=== PATIENT | female | born 2005 | race Caucasian/White ===

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

== ENCOUNTER 2023-12-28 16:28 | Outpatient (REF) | payer MEDICAID, SELFPAY ==
--- OUTSIDE RECORDS SUMMARY | 2023-12-28 16:30 | XMS_ITS | Encounter Summary ---
Author Organization [facility] Address [address] [place] [address] Care Team Providers Care Ivory Carver Name Role Phone Jaydon Priscilla John KIM Primary Care Provider [phone] Reason for Visit * Reason Onset Date Comments Follow-up 12/12/2017 Encounter Details Date Type Department Care Team (Late st Contact Info) Description 12/12/2017 Telephone [facility] Pediatric Cardiology - [address] [address] Carlos Quintana MD [address] [place] [address] Follow-up Social History Tobacco Use Types Packs/Day Years Used Date Smoking Tobacco: Never Smokeless Tobacco: Never Comments No Sex and Gender Information Value Date Recorded Sex Assigned at Not on file Legal Sex Female 10:55 EDT Gender Identity Not on file Sexual Orientation Not on file documented as of this encounter Miscellaneous Notes * Telephone Encounter - Carlos Quintana MD - 12/12/2017 5688 EST Spoke with Chitra's father regarding her Holter monitor/workout. During the workout: she pushed herself to the maximum, and she did not vomit. Her father was present the entire time. She did have some asthma-like symptoms twice (she could not get enough air) at peak exertion, that would improve with a short rest. Chitra was tired for several hours following the workout, but had no specific/concerning cardiovascular symptoms. Her father is aware I will be meeting with Dr. Hollis to discuss the case, and will follow up againby telephone. Carlos Quintana MD 12/12/2017 16:44 Division of Pediatric Cardiology, [facility] documented in this encounter Plan of Treatment Not on file documented as of this encounter Visit Diagnoses Not on filedocumented in this encounter Care Teams Ivory Carver Relationship Specialty Start Date End Date Priscilla Interiano NP [address] [place] [address] PCP - General 12/06/17 documented as of this encounter
--- OUTSIDE RECORDS SUMMARY | 2023-12-28 16:30 | XMS_ITS | Encounter Summary ---
Author Organization [facility] Address [address] [place] [address] Care Team Providers Care Audio Visual Technician Name Role Phone Jaydon Priscilla John KIM Primary Care Provider [phone] Encounter Details Date Type Department Care Team (Late st Contact Info) Description 12/06/2017 Phlebotomy Only [address] [address] Rodent Exterminator, Outpatient Gastroparesis (Primary Dx) Social History Tobacco Use Types Packs/Day Years Used Date Smoking Tobacco: Never Smokeless Tobacco: Never Comments No Sex and Gender Information Value Date Recorded Sex Assigned at Not on file Legal Sex Female 10:55 EDT Gender Identity Not on file Sexual Orientation Not on file documented as of this encounter Plan of Treatment Not on file documented as of this encounter Procedures Procedure Name Priority Date/Time Associated Diagnosis Comments TISSUE TRANSGLUTAMINASE ANTIBODY, IGA Routine 12/06/2017 12:32 EDT Gastroparesis IGA Routine 12/06/2017 12:32 EDT Gastroparesis SED RATE Routine 12/06/2017 12:32 EDT Gastroparesis COMPLETE BLOOD COUNT AND DIFFERENTIAL Routine 12/06/2017 12:32 EDT Gastroparesis C REACTIVE PROTEIN Routine 12/06/2017 12 :32 EDT Gastroparesis TSH Routine 12/06/2017 12:32 EDT Gastroparesis T4 FREE Routine 12/06/2017 12:32 EDT Gastroparesis LIPASE Routine 12/06/2017 12:32 EDT Gastroparesis AMYLASE Routine 12/06/2017 12:32 EDT Gastroparesis COMPREHENSIVE METABOLIC PANEL (CMP) Routine 12/06/2017 12:32 EDT Gastroparesis documented in this encounter Results * C REACTIVE PROTEIN (12/06/2017 12:32 EDT) Pathologist [facility] C Reactive Protein <7.0 <10.0 mg/L 12/06/2017 14:18 EDT [facility] Blood specimen (specimen) BLOOD SPECIMEN / Unknown 12/06/2017 12:32 EDT 12/06/2017 13:48 EDT us Tristin Arboleda MD CHEMISTRY & BLOOD GAS ORDERABLES Final Result [facility] [address] [place] [address] * SED. RATE:WESTERGREN (12/06/2017 12:32 EDT) Pathologist [facility] Sed. Rate Westergren 2 0 - 20 mm/hr 12/06/2017 14:03 EDT [facility] Blood specimen (specimen) BLOOD SPECIMEN / Unknown 12/06/2017 12:32 EDT 12/06/2017 13:48 EDT us Tristin Arboleda MD HEMATOLOGY & PF4 ORDE RABLES Final Result [facility] [address] [place] [address] * TSH (12/06/2017 12:32 EDT) Pathologist [facility] TSH 2.88 0.50 - 4.50 uIU/ml 12/06/2017 14:47 EDT [facility] Comment: The results of this assay can be falsely lowered due to the consumption of Biotin. Blood specimen (specimen) BLOOD SPECIMEN / Unknown 12/06/2017 12:32 EDT 12/06/2017 13:48 EDT Tristin Arboleda MD CHEMISTRY & BLOOD GAS ORDERABLES Final Result Performing Organization Address [facility] Co de Phone Number [facility] [address] [place] [address] * T4 FREE (12/06/2017 12:32 EDT) T4, Free 0.9 0.8 - 2.0 ng/dl 12/06/2017 14:32 EDT [facility] Blood specimen (specimen) BLOOD SPECIMEN / Unknown 12/06/2017 12:32 EDT 12/06/2017 13:48 EDT Tristin Arboleda MD CHEMISTRY & BLOOD GAS ORDERABLES Final Result Performing Organization Address [facility] Co de Phone Number [facility] [address] [place] [address] * LIPASE (12/06/2017 12:32 EDT) Lipase 37 <181 U/L 12/06/2017 14:18 EDT [facility] Blood specimen (specimen) BLOOD SPECIMEN / Unknown 12/06/2017 12:32 EDT 12/06/2017 13:48 EDT Tristin Arboleda MD CHEMISTRY & BLOOD GAS ORDERABLES Final Result Performing Organization Address [facility] Co de Phone Number [facility] [address] [place] [address] * AMYLASE (12/06/2017 12:32 EDT) Amylase 60 U/L 12/06/2017 14:18 EDT [facility] Blood specimen (specimen) BLOOD SPECIMEN / Unknown 12/06/2017 12:32 EDT 12/06/2017 13:48 EDT Tristin Arboleda MD CHEMISTRY & BLOOD GAS ORDERABLES Final Result Performing Organization Address [facility] Co de Phone Number [facility] [address] [place] [address] * TISSUE TRANSGLUTAMINASE AB (12/06/2017 12:32 EDT) Tissue Transglut Ab <1.2 <4.0 U/mL 12/07/2017 12:48 EDT [facility] Comment: The use of this assay and normal range (result interpretation) has not been established for pediatric samples. Results were obtained with the Blume DistillationA Lite R h-tTG IgA SERG. A negative result may be due to IgA deficiency and does not rule out celiac disease. Blood specimen (specimen) BLOOD SPECIMEN / Unknown 12/06/2017 12:32 EDT 12/06/2017 13:48 EDT Tristin Arboleda MD IMMUNOLOGY AND SEROLO GY ORDERABLES Final Result Performing Organization Address [facility] Co de Phone Number [facility] [address] [place] [address] * IGA (12/06/2017 12:32 EDT) Pathologist [facility] IgA 139 47 - 249 mg/dL 12/07/2017 14:39 EDT [facility] Blood specimen (specimen) BLOOD SPECIMEN / Unknown 12/06/2017 12:32 EDT 12/06/2017 13:48 EDT Tristin Arboleda MD CHEMISTRY & BLOOD GAS ORDERABLES Final Result Performing Organization Address City/[facility] Co de Phone Number [facility] [address] [place] [address] * COMPLETE BLOOD COUNT AND DIFFERENTIAL (12/06/2017 12:32 EDT) WBC 5.01 4.5 - 13.0 K/cmm 12/06/2017 14:02 EDT [facility] RBC 4.47 4.10 - 5.10 M/cmm 12/06/2017 14:02 [facility] Hemoglobin 13.0 12.0 - 16.0 gm/dl 12/06/2017 14:02 [facility] HCT 38.1 36.0 - 46.0 % 12/06/2017 14:02 [facility] MCV 85 78 - 102 fl 12/06/2017 14:02 [facility] MCH 29.1 pg 12/06/2017 14:02 [facility] MCHC 34.1 gm/dl 12/06/2017 14:02 [facility] RDW-CV 13.2 % 12/06/2017 14:02 [facility] RDW-SD 40.8 fl 12/06/2017 14:02 [facility] PLT 274 156 - 312 K/cmm 12/06/2017 14:02 [facility] MPV 10.4 fl 12/06/2017 14:02 [facility] % Neutrophils 60.9 % 12/06/2017 14:02 [facility] % Lymphocytes 27.9 % 12/06/2017 14:02 [facility] % Monocytes 8.2 % 12/06/2017 14:02 [facility] % Eosinophils 2.0 % 12/06/2017 14:02 [facility] % Basophils 0.8 % 12/06/2017 14:02 [facility] % Immature Grans 0.2 % 12/06/2017 14:02 [facility] ABS Neutrophils 3.05 K/cmm 8 14:02 [facility] ABS Lymphs 1.40 K/cmm 12/06/2017 14:02 [facility] ABS Monocytes 0.41 K/cmm 12/06/2017 14:02 [facility] ABS Eosinophils 0.10 K/cmm 8 14:02 [facility] ABS Basophils 0.04 K/cmm 12/06/2017 14:02 [facility] ABS Immature Grans 0.01 K/cmm 12/06/2017 14:02 [facility] Type of Diff: Automated 12/06/2017 14:02 [facility] Blood specimen (specimen) BLOOD SPECIMEN / Unknown 12/06/2017 12:32 EDT 12/06/2017 13:48 EDT Tristin Arboleda MD PACKAGES & DNA PROBE ORDERABLES Final Result [facility] [address] [place] [address] * COMPREHENSIVE METABOLIC PANEL (CMP) (12/06/2017 12:32 EDT) Potassium 4.5 3.3 - 4.6 mEq/L 12/06/2017 14:13 [facility] Sodium 140 136 - 145 mEq/L 12/06/2017 14:13 [facility] Chloride 104 96 - 110 mEq/L 12/06/2017 14:13 [facility] CO2 27 22 - 32 mEq/L 12/06/2017 14:13 [facility] Total Alkaline Phosphatase 73 62 - 209 U/L 12/06/2017 14:13 [facility] Bilirubin, Total 0.7 <1.0 mg/dl 12/07/19 18 14:13 [facility] AST 19 10 - 30 U/L 12/06/2017 14:13 [facility] ALT 19 <31 U/L 12/06/2017 14:13 [facility] Albumin 4.7 3.7 - 5.6 g/dl 12/06/2017 14:13 [facility] Total Protein 7.3 6.3 - 8.6 g/dl 12/06/2017 14:13 [facility] Creatinine 0.66 0.46 - 0.81 mg/dl 12/06/2017 14:13 [facility] GFR, Calculated Age <18 ml/min/1.7 3m2 12/06/2017 14:13 [facility] BUN 11 8 - 21 mg/dl 12/06/2017 14:13 EDT [facility] Calcium 9.9 9.2 - 10.7 mg/dl 12/06/2017 14:13 T [facility] Calculated Calcium 9.3 9.2 - 10.7 mg/dl 12/06/2017 14:13 EDT [facility] Glucose, Serum 99 70 - 100 mg/dl 12/06/2017 14:13 EDT [facility] Fasting? No 12/06/2017 12:33 EDT [facility] Blood specimen (specimen) BLOOD SPECIMEN / Unknown 12/06/2017 12:32 EDT 12/06/2017 13:48 EDT Tristin Arboleda MD CHEMISTRY & BLOOD GAS ORDERABLES Final Result [facility] [address] [place] [address] documented in this encounter Visit Diagnoses Diagnosis Gastroparesis- Primary documented in this encounter Care Teams Audio Visual Technician Relationship Specialty Start Date End Date Priscilla Interiano NP [address] [place] [address] PCP - General 12/06/17 documented as of this encounter
--- OUTSIDE RECORDS SUMMARY | 2023-12-28 16:30 | XMS_ITS | Encounter Summary ---
Author Organization [facility] Address [address] [place] [address] Care Team Providers Care Installer Technician Name Role Phone JaydonPriscilla John KIM Primary Care Provider [phone] Reason for Visit * Reason Onset Date Comments Appointment Related 10/22/2018 Encounter Details Date Type Department Care Team (Late st Contact Info) Description 10/22/2018 Telephone [facility] - Main [place] [address] [place] [address] Tristin Arboleda MD [address] [place] [address] Appointment Related Social History Tobacco Use Types Packs/Day Years Used Date Smoking Tobacco: Never Smokeless Tobacco: Never Comments No Sex and Gender Information Value Date Recorded Sex Assigned at Not on file Legal Sex Female 10:55 EDT Gender Identity Not on file Sexual Orientation Not on file documented as of this encounter Miscellaneous Notes * Telephone Encounter - Jessica Barr - 10/22/2018 0837 EDT Family did not respond to calls, so appt was not scheduled. Records sent to be scanned. * Telephone Encounter - Bette Ford - 10/22/2018 0804 EDT Delmy from the [facility] called to say the referral that was sent on 10/11 is no longer needed for this patient. Please close it. Thanks! documented in this encounter Plan of Treatment Not on file documented as of this encounter Visit Diagnoses Not on filedocumented in this encounter Care Teams Installer Technician Relationship Specialty Start Date End Date Priscilla Interiano, YARDAGE TUFTING MACHINE OPERATOR [address] [place] [address] PCP - General 12/06/17 documented as of this encounter
--- OUTSIDE RECORDS SUMMARY | 2023-12-28 16:30 | XMS_ITS | Encounter Summary ---
Author Organization [facility] Address [address] [place] [address] Care Team Providers Care Lobbyist Name Role Phone Priscilla Interiano NP Primary Care Provider [phone] Reason for Visit * Reason Comments Cardiac Testing Encounter Details Date Type Department Care Team (Latest Contact Info) Description 12/06/2017 14:00 EDT Procedure visit [facility] Cardiology - Main [address] [id number] Holter, McHv Pre-syncope (Primary Dx) Social History Tobacco Use Types [...] Procedure Name Priority Date/Time Associated Diagnosis Comments HOLTER MONITOR Routine 12/06/2017 14:05 EDT Pre-syncope documented in this encounter Results * HOLTER MONITOR (12/06/2017 14:05 EDT) 12/06/2017 14:0 5 EDT Narrative [facility] EKG - 12/13/2017 17:33 EST ? [facility] ? Test Date: ?2017-12-06 Pat Name: ? CHITRA ROLAND ? Department: ? Room: ? Gender: ? Female ? Senior Technical Project Manager: ?? [id number] : ?2005 ? Requested By: JENA Shafer Order Number: [id number] ? Violeta ANG: ?? KIRAN BELLA MD ? Interpretive Statements Monitoring for 48 hours revealed predominant sinus rhythm with minimum, average, and maximum rates of 47/, 86, 207 beats per minute, respectively. ?? 1. No significant ventricular ectopy present. 2. No significant supraventricular ectopy present. 3. Sinus tachycardia was present at the maximal heart rate. 4. Normal sinus node response to documented cardiovascular workout (between 3:40pm-4:40pm on Dec 07). No arrhythmias during exertion. 4. Infrequent intermittent Wenckebach present over night, without significant pauses. Symptoms: No cardiovascular diary symptoms reported. IMPRESSION: ??Cardiac monitoring within normal limits for age, with normal heart rate response to cardiovascular activity. I reviewed the tracing and have either agreed or edited the findings in this report. Electronically Signed On 12-13-2017 17:33:51 EST by KIRAN BELLA MD. Procedure Note Kiran Bella MD - 12/13/2017 [facility] Test Date: 2017-12-06 Pat Name: CHITRA ROLAND Department: Room: Gender: Female Senior Technical Project Manager: [id number] : 2005 Requested By: JENA Shafer Order Number: [id number] Reading MD: KIRAN BELLA MD Interpretive Statements Monitoring for 48 hours revealed predominant sinus rhythm with minimum, average, and maximum rates of 47/, 86, 207 beats per minute, respectively. 1. No significant ventricular ectopy present. 2. No significant supraventricular ectopy present. 3. Sinus tachycardia was present at the maximal heart rate. 4. Normal sinus node response to documented cardiovascular workout(between 3:40pm-4:40pm on Nov 2). No arrhythmias during exertion. 4. Infrequent intermittent Wenckebach present over night, withoutsignificant pauses. Symptoms: No cardiovascular diary symptoms reported. IMPRESSION: Cardiac monitoring within normal limits for age, withnormal heart rate response to cardiovascular activity. I reviewed the tracing and have either agreed or edited the findings inthis report. Electronically Signed On 12-13-2017 17:33:51 EST by KIRAN ENRIQUE. us Kiran Bella MD CARDIAC ECG ORDERABLES Final Result [facility] EKG documented in this encounter Visit Diagnoses Diagnosis Pre-syncope- Primary Syncope and collapse documented in this encounter Care Teams Lobbyist Relationship Specialty Start Date End Date Priscilla Interiano NP [address] [place] [address] PCP - General 12/06/17 documented as of this encounter
--- OUTSIDE RECORDS SUMMARY | 2023-12-28 16:30 | XMS_ITS | Encounter Summary ---
Author Organization [facility] Address [address] [place] [address] Care Team Providers Care Flexible Nanny Name Role Phone Priscilla Interiano SPINNER FRAME Primary Care Provider [phone] Encounter Details Date Type Department Care Team (Late st Contact Info) Description 12/18/2017 7:51 EST - 12/18/2017 23:59 EST Hospital Encounter [facility] [address] [place] [address] Tristin Arboleda MD [address] [place] [id number] Discharge Disposition: Auto Discharge Social History Tobacco Use Types Packs/Day Years Used Date Smoking Tobacco: Never Smokeless Tobacco: Never Comments No Sex and Gender Information Value Date Recorded Sex Assigned at Not on file Legal Sex Female 10:55 EDT Gender Identity Not on file Sexual Orientation Not on file documented as of this encounter Discharge Diagnoses Diagnosis 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 ferrous sulfate (IRON ORAL) Take by mouth daily. documented as of this encounter Discharge Disposition Disposition Code Departure Means Destination Auto Discharge Home documented in this encounter Plan of Treatment Not on file documented as of this encounter Visit Diagnoses Not on filedocumented in this encounter Care Teams Flexible Nanny Relationship Specialty Start Date End Date Priscilla Interiano NP [address] [place] [phone] PCP - General 12/06/17 documented as of this encounter
--- OUTSIDE RECORDS SUMMARY | 2023-12-28 16:30 | XMS_ITS | Encounter Summary ---
Author Organization [facility] Address [address] [place] [address] Care Team Providers Care Supervisor Ticket Sales Name Role Phone Priscilla Interiano APPRAISAL MANAGER Primary Care Provider [phone] Reason for Visit * Reason Onset Date Comments Advice Only 12/13/2017 Encounter Details Date Type Department Care Team (Late st Contact Info) Description 12/13/2017 Telephone [facility] Pediatric Cardiology - [facility] [address] [place], [place] [id number] Carlos Quintana MD [address] [place] [address] Advice Only Social History Tobacco Use Types Packs/Day Years Used Date Smoking Tobacco: Never Smokeless Tobacco: Never Comments No Sex and Gender Information Value Date Recorded Sex Assigned at Not on file Legal Sex Female 10:55 EDT Gender Identity Not on file Sexual Orientation Not on file documented as of this encounter Miscellaneous Notes * Telephone Encounter - Emely Houser - 12/13/2017 1418 EST Please call dad (Mariano) Note: He's not available though between 3 and 4:00 documented in this encounter Plan of Treatment Not on file documented as of this encounter Visit Diagnoses Not on filedocumented in this encounter Care Teams Supervisor Ticket Sales Relationship Specialty Start Date End Date Priscilla Interiano, APPRAISAL MANAGER [address] [place] [address] PCP - General 12/06/17 documented as of this encounter
--- OUTSIDE RECORDS SUMMARY | 2023-12-28 16:30 | XMS_ITS | Clinical Summary ---
Author Organization [facility] Address [address] [place] [address] Care Team Providers Care Utility Repairer Name Role Phone Jaydon Priscilla John TRADE CLERK Primary Care Provider [phone] Allergies No known active allergies Medications cyanocobalamin, vitamin B-12, (VITAMIN B12 ORAL) Take by mouth daily. Active ferrous sulfate (IRON ORAL) Take by mouth daily. Active Active Problems Problem Noted Date Diagnosed Date Mitral valve regurgitation 10/20/2016 Overview (10/20/2016): Mild Emesis 10/20/2016 Family History Medical History Relation Comments Cancer Mother Congenital heart defects Other valve r eplacement in [facility] Heart Disease Paternal Grandfather pipe smoker Relation Status Comments Brother Alive Father Alive Maternal Grandfather Alive Maternal Grandmother Mother Other Alive Paternal Grandfather Paternal Grandmother (Age 86) Social History Tobacco Use Types Packs/Day Years Used Date Smoking Tobacco: Never Smokeless Tobacco: Never Interpersonal Safety Answer Date Record ed Physically Hurt Never 09/08/2019 Verbally Threaten Not on file 09/08/2019 Comments No Sex and Gender Information Value Date Recorded Sex Assigned at Not on file Legal Sex Female 10:55 EDT Gender Identity Not on file Sexual Orientation Not on file Obstetrics History Last Filed Vital Signs Vital Sign Reading Time Taken Comments Blood Pressure 122/66 12/06/2017 1146 EDT Pulse 87 12/06/2017 1146 EDT Temperature - - Respiratory Rate 16 12/06/2017 1156 EDT Oxygen Saturation 100% 12/06/2017 1156 EDT Inhaled Oxygen Concentration - - Weight 71.6 kg (157 lb 13.6 oz) 12/06/2017 1146 EDT Height 166.6 cm (5' 5.59) 12/06/2017 1146 EDT Body Mass Index 25.8 12/06/2017 1146 EDT Plan of Treatment Health Maintenance Due Date Last Done Comments Hepatitis C Screen 2005 Hepatitis B Vaccine (1 of 3 - 19+ 3-dose series) 01/15 COVID-19 Vaccine ( season) 2023 Care Teams Utility Repairer Relationship Specialty Start Date End Date Priscilla Interiano, TRADE CLERK [address] [place] [address] PCP - General 12/06/17
--- OUTSIDE RECORDS SUMMARY | 2023-12-28 16:30 | XMS_ITS | Referral Summary ---
Author Organization [facility] Address [address] [place] [address] Care Team Providers Care Dial Mounter Name Role Phone Priscilla Interiano SPECIAL SERVICES AGENT Primary Care Provider [phone] Allergies No known active allergies Medications cyanocobalamin, vitamin B-12, (VITAMIN B12 ORAL) Take by mouth daily. Active ferrous sulfate (IRON ORAL) Take by mouth daily. Active Active Problems Problem Noted Date Diagnosed Date Mitral valve regurgitation 10/20/2016 Overview (10/20/2016): Mild Emesis 10/20/2016 Social History Tobacco Use Types Packs/Day Years Used Date Smoking Tobacco: Never Smokeless Tobacco: Never Interpersonal Safety Answer Date Record ed Physically Hurt Never 09/08/2019 Verbally Threaten Not on file 09/08/2019 Comments No Sex and Gender Information Value Date Recorded Sex Assigned at Not on file Legal Sex Female 10:55 EDT Gender Identity Not on file Sexual Orientation Not on file Last Filed Vital Signs Vital Sign Reading [...] 25.8 12/06/2017 1146 EDT Plan of Treatment Not on file Care Teams Dial Mounter Relationship Specialty Start Date End Date Priscilla Interiano, SPECIAL SERVICES AGENT [address] [place] [address] [facility] - General 12/06/17
--- OUTSIDE RECORDS SUMMARY | 2023-12-28 16:30 | XMS_ITS | Encounter Summary ---
Author Organization [facility] Address [address] [place] [address] Care Team Providers Care Heel Nailing Machine Operator Name Role Phone Priscilla Interiano ROUNDING MACHINE OPERATOR Primary Care Provider [phone] Encounter Details Date Type Department Care Team (Late st Contact Info) Description 12/12/2017 11:49 EST - 12/12/2017 11:51 EST Hospital Encounter [facility] [address] [place] [address] Carlos Quintana MD [address] [place] [phone] Discharge Disposition: Home or Self Care Social History Tobacco Use Types Packs/Day Years Used Date Smoking Tobacco: Never Smokeless Tobacco: Never Comments No Sex and Gender Information Value Date Recorded Sex Assigned at Not on file Legal Sex Female 10:55 EDT Gender Identity Not on file Sexual Orientation Not on file documented as of this encounter Discharge Diagnoses Diagnosis R55 Syncope and collapse-R55[ICD-10-CM] documented in this encounter Medications at Time of Discharge cyanocobalamin, vitamin B-12, (VITAMIN B12 ORAL) Take by mouth daily. ferrous sulfate (IRON ORAL) Take by mouth daily. documented as of this encounter Discharge Disposition Disposition Code Departure Means Destination Home or Self Care documented in this encounter Plan of Treatment Not on file documented as of this encounter Visit Diagnoses Not on filedocumented in this encounter Care Teams Heel Nailing Machine Operator Relationship Specialty Start Date End Date Priscilla Interiano NP [address] [place] [phone] PCP - General 12/06/17 documented as of this encounter
--- OUTSIDE RECORDS SUMMARY | 2023-12-28 16:31 | XMS_ITS | Encounter Summary ---
Author Organization [facility] Address [address] [place] [address] Care Team Providers Care Dump Operator Name Role Phone Jose Chua MD, Ricarda Primary Care Provider [phone] Encounter Details Date Type Department Care Team (Late st Contact Info) Description 10/25/2016 Results Only Imaging [facility] Pediatric Cardiology - Main [address] [id number] Flyer, Carlos Shafer MD [address] [place] [phone] Social History Tobacco Use Types Packs/Day Years [...] Procedure Name Priority Date/Time Associated Diagnosis Comments EXERCISE TOLERANCE TEST 10/25/2016 14:45 EDT documented in this encounter Results * EXERCISE TOLERANCE TEST (10/25/2016 14:45 EDT) Anatomical Region Laterality Modality Other 10/25/2016 14:4 5 EDT Narrative 10/30/2016 14:43 EDT *[facility]* [address] [place] [id number] *Interpreting Group:* *[facility]* [address] [place] [id number] ) Stress Electrocardiography Maxwell protocol Date of study: ??10/25/2016 *PATIENT PRESENTATION* Height: ? 166.5cm (65.6in) Blood Pressure: Weight: ? 66.2kg (145.6lb) BSA: ?1.76m^2 Referring physician: Ricarda Garcia V Ordering physician: ??Carlos Quintana MD Impressions: ??Normal stress test after maximal exercise, above average capacity for age. Summary: 1. Stress: There is a normal resting blood pressure and heart rate with ?? an appropriate response to stress. The patient experienced no chest ?? pain during stress. Exercise capacity is above normal for age, ?? greater than 90% for age. The test was stopped after 15min 9sec ?? (Stage ) due to dyspnea, leg pain, and nausea. 2. QT interval decrease during test. ?? Manual pre-exercise QTc 441 (HR 78), and 450msec (99bmp) at 6min ?? recovery. 3. No ectopy/arrhythmias were noted. Baseline conduction delay present. 4. No emesis during testing. History: ??Acquired from the patient and from the patient's chart. Nausea and vomiting with exertion. ??Medications: ??No medications. ??Allergies: No known allergies. Medications were charted in the [employer] electronic medical record system. Protocol: ??Maxwell protocol. Baseline ECG: ??10/16/16: SR, leftward axis, possible left atrial enlargement, incomplete right bundle branch block. ??MS 177ms; QRS 104ms; QT 356ms; QTc 436ms. Stress protocol: + +---+ + + Stage ? HR BP (mmHg) ?? Symptoms ? + +---+ + + Baseline supine ? 78 112/64 (80) ? + +---+ + + Baseline standing ? 96 112/84 (93) ? + +---+ + + Stage I; 1.7mph, ? 122 116/78 (91) None ? 10degrees; 3 min ? + +---+ + + Stage II; 2.5mph, ? 145 128/70 (89) None ? 12degrees; 3 min ? + +---+ + + Stage III; 3.4mph, ? 173 134/66 (89) None ? 14degrees; 3 min ? + +---+ + + Stage IV; 4.2mph, ? 194 140/72 (95) Dyspnea ? 16degrees; 3 min ? + +---+ + + Stage V; 5mph, 18degrees; 196 148/72 (97) Dyspnea, dizziness, nausea 3 min ? + +---+ + + Stage ; 5.5mph, ? 203 ? Dyspnea, dizziness, leg ?? 20degrees; 9 sec ? pain, nausea ? + +---+ + + Peak stress ? 203 ? + +---+ + + Immediate post stress ? 193 ? + +---+ + + Recovery; 1 min ? 181 174/70 (105) Subsiding ? + +---+ + + Recovery; 3 min ? 117 152/66 (95) Dyspnea ? + +---+ + + Recovery; 6 min ? 111 118/70 (86) Resolved ? + +---+ + + Recovery; 9 min ? 99 ? None ? + +---+ + + * Stress results: ?? Maximal heart rate during stress was 203bpm (98% of maximal predicted heart rate). The maximal predicted heart rate was 206bpm. There is a normal resting blood pressure and heart rate with an appropriate response to stress. ??The patient experienced no chest pain during stress. ?? The patient experienced dyspnea, leg pain, and nausesa in response to stress. Exercise capacity is above normal for age, greater than 90% for age. Study data: ??This study was interpreted by [facility]iology. ??Study status: ??Routine. Consent: ??The risks, benefits, and alternatives to the procedure were explained to the patient and informed consent was obtained. ??Procedure: Initial setup. A baseline ECG was recorded. Surface ECG leads and manual cuff blood pressure measurements were monitored. Heart sounds: Normal. Lung sounds: Normal. Treadmill exercise testing was performed using the Maxwell protocol. The patient exercised for 15 min 9 sec, to protocol stage 6, to a maximal work rate of 15mets. Exercise was terminated due to dyspnea, leg fatigue, and nausea. ??Study completion: ??The patient tolerated the procedure well and was discharged from the lab. There were no complications. ??Discharge: ??The patient was discharged to homewhile ambulatoryat 03:30 PM accompanied by a relative. The patient left the laboratory in stable condition. The supervising physician was notified of the ECG results. ? Birthdate: ??Patient birthdate: 2005. ??Sex: Gender: female. ??Study date: ??Study date: 10/25/2016. Study time: 02:45 PM. Electronically signed by Carlos Quintana MD 10/30/2016 14:43 Procedure Note Carlos Quintana MD - 10/30/2016 *[facility]* [address] [place] [id number] *Interpreting Group:* *[facility]* [address] [phone] ) Stress Electrocardiography Maxwell protocol Date of study: 10/25/2016 *PATIENT PRESENTATION* Height: 166.5cm (65.6in) Blood Pressure: Weight: 66.2kg (145.6lb) BSA: 1.76m^2 Referring physician: Ricarda Garcia V Ordering physician: Carlos Quintana MD Impressions: Normal stress test after maximal exercise, above average capacity for age. Summary: 1. Stress: There is a normal resting blood pressure and heart rate with an appropriate response to stress. The patient experienced no chest pain during stress. Exercise capacity is above normal for age, greater than 90% for age. The test was stopped after 15min 9sec (Stage ) due to dyspnea, leg pain, and nausea. 2. QT interval decrease during test. Manual pre-exercise QTc 441 (HR 78), and 450msec (99bmp) at 6min recovery. 3. No ectopy/arrhythmias were noted. Baseline conduction delay present. 4. No emesis during testing. History: Acquired from the patient and from the patient's chart. Nausea and vomiting with exertion. Medications: No medications. Allergies: No known allergies. Medications were charted in the [employer] electronic medical record system. Protocol: Maxwell protocol. Baseline EC10/16/16: SR, leftward axis, possible left atrial enlargement, incomplete right bundle branch block. MS 177ms; QRS 104ms; QT 356ms; QTc 436ms. Stress protocol: + +---+ + + Stage HR BP (mmHg) Symptoms + +---+ + + Baseline supine 78 112/64 (80) + +---+ + + Baseline standing 96 112/84 (93) + +---+ + + Stage I; 1.7mph, 122 116/78 (91) None 10degrees; 3 min + +---+ + + Stage II; 2.5mph, 145 128/70 (89) None 12degrees; 3 min + +---+ + + Stage III; 3.4mph, 173 134/66 (89) None 14degrees; 3 min + +---+ + + Stage IV; 4.2mph, 194 140/72 (95) Dyspnea 16degrees; 3 min + +---+ + + Stage V; 5mph, 18degrees; 196 148/72 (97) Dyspnea, dizziness, nausea 3 min + +---+ + + Stage ; 5.5mph, 203 Dyspnea, dizziness, leg 20degrees; 9 sec pain, nausea + +---+ + + Peak stress 203 + +---+ + + Immediate post stress 193 + +---+ + + Recovery; 1 min 181 174/70 (105) Subsiding + +---+ + + Recovery; 3 min 117 152/66 (95) Dyspnea + +---+ + + Recovery; 6 min 111 118/70 (86) Resolved + +---+ + + Recovery; 9 min 99 None + +---+ + + * Stress results: Maximal heart rate during stress was 203bpm (98% of maximal predicted heart rate). The maximal predicted heart rate was 206bpm. There is a normal resting blood pressure and heart rate with an appropriate response to stress. The patient experienced no chest pain during stress. The patient experienced dyspnea, leg pain, and nausesa in response to stress. Exercise capacity is above normal for age, greater than 90% for age. Study data: This study was interpreted by [facility]. Study status: Routine. Consent: The risks, benefits, and alternatives to the procedure were explained to the patient and informed consent was obtained. Procedure: Initial setup. A baseline ECG was recorded. Surface ECG leads and manual cuff blood pressure measurements were monitored. Heart sounds: Normal. Lung sounds: Normal. Treadmill exercise testing was performed using the Maxwell protocol. The patient exercised for 15 min 9 sec, to protocol stage 6, to a maximal work rate of 15mets. Exercise was terminated due to dyspnea, leg fatigue, and nausea. Study completion: The patient tolerated the procedure well and was discharged from the lab. There were no complications. Discharge: The patient was discharged to homewhile ambulatoryat 03:30 PM accompanied by a relative. The patient left the laboratory in stable condition. The supervising physician was notified of the ECG results. Birthdate: Patient birthdate: 2005. Sex: Gender: female. Study date: Study date: 10/25/2016. Study time: 02:45 PM. Electronically signed by Carlos Quintana MD 10/30/2016 14:43 us Carlos Quintana MD CARDIAC SERVICES ORDERABLES Final Result documented in this encounter Visit Diagnoses Not on filedocumented in this encounter Care Teams Dump Operator Relationship Specialty Start Date End Date Ricarda Garcia MD [address] [place] [address] PCP - General 10/16/16 12/05/17 documented as of this encounter
--- OUTSIDE RECORDS SUMMARY | 2023-12-28 16:31 | XMS_ITS | Encounter Summary ---
Author Organization [facility] Address [address] [place] [address] Care Team Providers Care Metal Loader Name Role Phone Jose Chua MD, Elaine Primary Care Provider [phone] Priscilla Interiano NP Primary Care Provider [phone] Reason for Visit * Reason Onset Date Comments Coordination Of Care 11/30/2017 Encounter Details Date Type Department Care Team (Late st Contact Info) Description 11/30/2017 Telephone [facility] Pediatric Cardiology - [facility] [address] [place] [address] Alpa Hallman RN [address] [place] [address] Coordination Of Care Social History Tobacco Use Types Packs/Day Years Used Date Smoking Tobacco: Never Smokeless Tobacco: Never Comments No Sex and Gender Information Value Date Recorded Sex Assigned at Not on file Legal Sex Female 10:55 EDT Gender Identity Not on file Sexual Orientation Not on file documented as of this encounter Miscellaneous Notes * Telephone Encounter - Alpa Hallman RN - 12/03/2017 1620 EDT Message sent to Holter scheduling to coordinate Holter following 12/[address] Quintana. * Telephone Encounter - Alpa Hallman RN - 11/30/2017 1020 EDT Attempting to reach Mariano to see if Chitra had Holter placed. If not will arrange after upcoming visit. 12/03/17: Tried multiple attempts. Unsuccessful to reach family to discuss previous Holter order. documented in this encounter Plan of Treatment Not on file documented as of this encounter Visit Diagnoses Not on filedocumented in this encounter Care Teams Metal Loader Relationship Specialty Start Date End Date Ricarda Garcia MD [address] [place] [address] PCP - General 10/16/16 12/05/17 Priscilla Interiano NP [address] [place] [id number] PCP - General 12/06/17 documented as of this encounter
--- OUTSIDE RECORDS SUMMARY | 2023-12-28 16:31 | XMS_ITS | Encounter Summary ---
Author Organization [facility] Address [address] [place] [address] Care Team Providers Care Dean Of Chapel Name Role Phone Jose Chua MD, Ricarda Primary Care Provider [phone] Reason for Referral * Referral (Routine/Next Available) - Closed Specialty Diagnoses / Procedures Referred By Contact Referred To Contact Pediatric Gastroenterology Diagnoses Pre-syncope Kiran Bella MD Phone: tel:[phone] fax:[phone] [facility] - Main [place] [address] [place] [address] Phone: tel: fax: Referral ID Status Reason Start Date Expiration Date V isits Requested Visits Authorized [id number] Closed Specialty Services Required 10/16/2017 1 1 Question Answer Reason for Request: vomiting with exertion/pre-syncope Scheduling Comments (optional ? describe specific scheduling needs if applicable): coordinated with cardiology * Cardiology (Other (Specify in Question)) - Closed Specialty Diagnoses / Procedures Referred By Contac t Referred To Contact Diagnoses Pre-syncope Procedures HOLTER MONITOR Kiran Bella MD Phone: tel: fax: Referral ID Status Reason Start Date Expiration Date Visits Re quested Visits Authorized [id number] Closed 10/11/2017 1 1 Reason for Visit * Reason Onset Date Comments Advice Only 10/09/2017 Encounter Details Date Type Department Care Team (Late st Contact Info) Description 10/09/2017 Telephone [facility] - Main [place] [address] [place] [address] Kiran Bella MD [address] [place] [address] Advice Only Social History Tobacco Use Types Packs/Day Years Used Date Smoking Tobacco: Never Smokeless Tobacco: Never Comments No Sex and Gender Information Value Date Recorded Sex Assigned at Not on file Legal Sex Female 10:55 EDT Gender Identity Not on file Sexual Orientation Not on file documented as of this encounter Miscellaneous Notes * Addendum Note - Lauren Hallman RN - 10/16/2017 1051 EDTAddended by: LAUREN HALLMAN on: 10/16/2017 10:51 Modules accepted: Orders * Addendum Note - Lauren Hallman RN - 10/11/2017 1631 EDTAddended by: LAUREN HALLMAN on: 10/11/2017 16:31 Modules accepted: Orders * Telephone Encounter - Lauren Hallman RN - 10/10/2017 1102 EDT Note/encounter faxed per Dr. Bella. * Telephone Encounter - Florecita Huber - 10/09/2017 1657 EDT Priscilla Interiano, an DOUGH MIXER from [facility] is calling regarding a mutual patient. Chitra has been experiencing ongoing symptoms of pre-synchopy with exercise. Priscilla is looking for advice from on where to go next. She is available by phone on either and Sunday at: [phone]. She is also motion picture set grip all week so can be paged at: [phone]. documented in this encounter Plan of Treatment Scheduled Referrals Name Type Priority Associated Diagnoses Order Schedule AMB CONS/FOLLOW UP PEDIATRIC GASTROENTEROLOGY Outpatient Referral Routine Pre-syncope Ordered: 10/16/2017 documented as of this encounter Results * HOLTER MONITOR (12/06/2017 14:05 EDT) 12/06/2017 14:0 5 EDT Narrative [facility] EKG - 12/13/2017 17:33 EST ? [facility] ? Test Date: ?2017-12-06 Pat Name: ? CHITRA ROLAND ? Department: ? Room: ? Gender: ? Female ? Obstetrics Gynecology Md: ?? [id number] : ?2005 ? Requested By: JENA Shafer Order Number: [id number] ? Reading : ?? KIRAN BELLA MD ? Interpretive Statements [...] documented cardiovascular workout (between 3:40pm-4:40pm on Dec 2). No arrhythmias during exertion. 4. Infrequent [...] Note Kiran Bella MD - 12/13/2017 [facility] Test Date: 2017-12-06 Pat Name: CHITRA ROLAND Department: Room: Gender: Female Obstetrics Gynecology Md: [id number] : 2005 Requested By: JENA Shafer Order Number: [id number] Reading MD: KIRAN BELLA MD Interpretive Statements Monitoring for 48 hours revealed predominant sinus rhythm with minimum, average, and maximum rates of 47/, 86, 207 beats per minute, respectively. 1. No significant ventricular ectopy present. 2. No significant supraventricular ectopy present. 3. Sinus tachycardia was present at the maximal heart rate. 4. Normal sinus node response to documented cardiovascular workout(between 3:40pm-4:40pm on Dec 2). No arrhythmias during exertion. 4. Infrequent [...] Bella MD CARDIAC ECG ORDERABLES Final Result [facility] EKG documented in this encounter Visit Diagnoses Diagnosis Pre-syncope- Primary Syncope and collapse Pre-syncope- Primary Syncope and collapse documented in this encounter Care Teams Dean Of Chapel Relationship Specialty Start Date End Date Ricarda Garcia MD [address] [place] [address] PCP - General 10/16/16 12/05/17 documented as of this encounter
--- OUTSIDE RECORDS SUMMARY | 2023-12-28 16:31 | XMS_ITS | Encounter Summary ---
Author Organization [facility] Address [address] [place] [address] Care Team Providers Care Disability Specialist Name Role Phone Jose Chua MD, Ricarda Primary Care Provider [phone] Encounter Details Date Type Department Care Team (Late st Contact Info) Description 10/23/2016 7:41 EDT - 10/23/2016 7:43 EDT Hospital Encounter [facility] [address] [place] [address] Carlos Quintana MD [address] [place] [phone] Discharge Disposition: Home-Health Care Svc Social History Tobacco Use Types Packs/Day Years Used Date Smoking Tobacco: Never Smokeless Tobacco: Never Comments No Sex and Gender Information Value Date Recorded Sex Assigned at Not on file Legal Sex Female 10:55 EDT Gender Identity Not on file Sexual Orientation Not on file documented as of this encounter Discharge Diagnoses Diagnosis R00.0 Tachycardia, unspecified-R00.0[ICD-10-CM] documented in this encounter Discharge Disposition Disposition Code Departure Means Destination Home-Health Care Svc documented in this encounter Plan of Treatment Not on file documented as of this encounter Visit Diagnoses Not on filedocumented in this encounter Care Teams Disability Specialist Relationship Specialty Start Date End Date Ricarda Garcia MD [address] [place] [address] [place] [address] PCP - General 10/16/16 12/05/17 documented as of this encounter
--- OUTSIDE RECORDS SUMMARY | 2023-12-28 16:31 | XMS_ITS | Encounter Summary ---
Author Organization [facility] Address [address] [place] [address] Care Team Providers Care Copyright Clerk Name Role Phone Jose Chua MD, Ricarda Primary Care Provider [phone] Encounter Details Date Type Department Care Team (Late st Contact Info) Description 10/25/2016 14:02 EDT - 10/25/2016 23:59 EDT Hospital Encounter [facility] [address] [place] [address] FlyCarlos philip MD [address] [place] [phone] Discharge Disposition: Auto Discharge Social History Tobacco [...] Procedure Name Priority Date/Time Associated Diagnosis Comments STRESS TEST - SCANNED 11/20/2016 9:49 EDT documented in this encounter Results * STRESS TEST - SCANNED (11/20/2016 9:49 EDT) Anatomical Region Laterality Modality Other 11/20/2016 9:49 EDT us Scan 2 Bisque Cleaner IMG OTHER IMAGING ORDERABLE S Final Result documented in this encounter Visit Diagnoses Not on filedocumented in this encounter Care Teams Copyright Clerk Relationship Specialty Start Date End Date Ricarda Garcia MD [address] [place] [address] PCP - General 10/16/16 12/05/17 documented as of this encounter
--- OUTSIDE RECORDS SUMMARY | 2023-12-28 16:31 | XMS_ITS | Encounter Summary ---
Author Organization [facility] Address [address] [place] [address] Care Team Providers Care Learning Analyst Name Role Phone Jose Chua MD, Ricarda Primary Care Provider [phone] Reason for Referral * Cardiology (STAT) - Closed Specialty Diagnoses / Procedures Referred By Cindy lockwood Referred To Contact Diagnoses Tachycardia Procedures HOLTER MONITOR Kiran Bella MD Phone: tel: fax: Referral ID Status Reason Start Date Expiration Date Visits Re quested Visits Authorized [id number] Closed 10/16/2016 1 1 * Cardiology (STAT) - Closed Specialty Diagnoses / Procedures Referred By Cindy lockwood Referred To Contact Cardiology / Pediatric Cardiology Diagnoses Tachycardia Procedures ECHOCARDIOGRAM RI ECHO HEART XTHORACIC,COMPLETE W DOPPLER RI DOPPLER ECHO HEART,COMPLETE RI DOPPLER COLOR FLOW VELOCITY MAP RI ECHO XTHORACIC,BLAISE ANOM,COMPLETE Kiran Bella MD Phone: tel: fax: [facility] Pediatric Cardiology - [address] [place] [address] [place] [address] Phone: tel: fax: Referral ID Status Reason Start Date Expiration Date Visits Re quested Visits Authorized [id number] Closed 10/16/2016 1 1 Reason for Visit * Reason Comments Heart Problem NPV Hx of tachycardi a and vomiting while runniing cross country. No CP. Has some dizziness and vision changes. No syncope. Only happens with exercise. After vominting continues running /skiing and finishes. NO other concerns. * Consult (Routine) - Closed Specialty Diagnoses / Procedures Referred By Cindy lockwood Referred To Contact Pediatric Cardiology Diagnoses Tachycardia Rolanda Banks MD Phone: tel: fax: [facility] Cardiology [address] [address] Phone: tel: fax: Referral ID Status Reason Start Date Expiration Date Visits Re quested Visits Authorized [id number] Closed 1 1 Encounter Details Date Type Department Care Team (Late st Contact Info) Description 10/16/2016 8:00 EDT Office Visit [facility] Cardiology [address] [id number] FlyKiran philip MD [address] [place] [phone] Tachycardia (Primary Dx) Discharge Disposition: Auto Discharge Social History Tobacco Use Types Packs/Day Years Used Date Smoking Tobacco: Never Smokeless Tobacco: Never Comments No Sex and Gender Information Value Date Recorded Sex Assigned at Not on file Legal Sex Female 10:55 EDT Gender Identity Not on file Sexual Orientation Not on file documented as of this encounter Last Filed Vital Signs Vital Sign Reading Time Taken Comments Blood Pressure 140/74 10/16/2016 0825 EDT Pulse 82 10/16/2016 0808 EDT Temperature - - Respiratory Rate 16 10/16/2016 0808 EDT Oxygen Saturation 100% 10/16/2016 0808 EDT Inhaled Oxygen Concentration - - Weight 66.2 kg (145 lb 15.1 oz) 10/16/2016 0808 EDT Height 166.5 cm (5' 5.55) 10/16/2016 0808 EDT Body Mass Index 23.88 10/16/2016 0808 EDT Body Mass Index Percentile 88.06% 10/16/2016 080 8 EDT Growth Chart: [facility] (Girls, 2- 20 Years) documented in this encounter Discharge Diagnoses Diagnosis I36.1 Nonrheumatic tricuspid (valve) insufficiency-I36.1[ICD-10-CM] I34.0 Nonrheumatic mitral (valve) insufficiency-I34.0[ICD-10-CM] R00.0 Tachycardia, unspecified-R00.0[ICD-10-CM] documented in this encounter Discharge Disposition Disposition Code Departure Means Destination Auto Discharge documented in this encounter Progress Notes * Kiran Bella MD - 10/16/2016 0800 EDT Chief Complaint: throwing up during exercise Chitra Roland is a 11 y.o. female seen today, 10/16/2016, in the outpatient Pediatric Cardiology offices of the [facility], for initial evaluation abdominal discomfort and emesis during exercise. She was referred by her primary physician, Drs. Garcia and Jocelyn, and accompanied by her father. ?? Chitra describes an ongoing history of throwing up when I exercise. She is a very active and avid runner, skier and mountain biker. She will often do these activities with her older brother and father, both of whom are extremely active as well; it is common for them to wear heart rate monitors (see below examples) during both practice and competitions to help with training. Chitra first recalls throwing up during a [place] skiing race when she was 4 years old. It was infrequent during her childhood, sort of off and on, over the past few years, but has now been increasing over this past year. She is working out and training very frequently and intensely at [employer] with the [employer] ski team, and will often cross train with the cross-country team. She is vomiting most often during hill interval training, where she is on nordic skis in the off-season, and has to sprint quickly up the hills 5 times in a row. She will start to feel nauseated, dizzy and lightheaded on the first interval, and then well have to pull off to the side and vomit. After she throws up, she feels better and is able to continue the exercise and complete all the intervals, however, she will feel tired. She currently practices every day, but Sunday. The longer distance exercises do not make her feel nauseated nor throw up, nor do easier mountain bike rides. Her father is very attentive to her, and has noticed that during peak exercises, when her heart rates are above the 170s and into the 200s, this is when she will start to feel nauseated. Her father notes that his resting heart rate, as well as her brothers is mostly in the 30s to 40s, and Chitra's is traditionally more in the 60s. EKG obtained by her pull over in October showed a sinus rhythm, left axis and right bundle-branch block (see below). Chitra is now throwing up almost every race as well, but feels better when going easier. During the race, she will vomit mostly in the middle to the end, which her father describes as painting the snow, or specifically if she goes out to fast. She feels like her races in the years past were better, and now is most worried about how this feeling is affecting her performance. Of note, Chitra's mother from cancer about a year and a half ago; her father mentioned an initial thought that perhaps the symptoms began to worsen around that time, but have now persisted for longer than he would have expected. Chitra has been otherwise healthy and is attending 8th grade. Chitra has had normal adolescent growthand development. She is very active, as mentioned above, and is able to keep up with her peers and older brother. There is no history of chest pain, syncope, cyanosis, pallor, respiratory distress, diaphoresis or palpitations. There is no history of emergency department visits nor hospital admissions for cardiac concerns. There is a first cousin who had an aortic valve replacement near 1 year of age. Otherwise there is no family history of congenital heart disease, pediatric arrhythmias, cardiac myopathies, channelopathies or sudden . She is on no chronic cardiac medications. Past Medical History: History: term gestation, spontaneous vaginal delivery without complications Family History: Problem Relation Name Comments Cancer Mother Congenital heart defects Other cousin valve replacement in [facility] Heart Disease Paternal Grandfather pipe smoker Social History: Living Conditions ??? Lives with Father exclusively ??? Father's name Mariano Roland Weekdays ??? Education Grade 8 ??? Reported academic performance Doing well Safety and Environmental Exposures Medications: No outpatient encounter prescriptions on file as of 10/16/2016. No facility-administered encounter medications on file as of 10/16/2016. Allergies: No Known Allergies Review of Systems: A complete review of 10 systems was performed and was negative except as noted above. Objective: Vitals: 10/16/16 0808 10/16/16 0811 10/16/16 0825 BP: 122/70 110/76 140/74 BP Cuff Location: Right arm Left arm Right leg Patient Position: Sitting Sitting Sitting Pulse: 82 Resp: 16 SpO2: 100% Weight: 66.2 kg (145 lb 15.1 oz) Height: 166.5 cm (65.55) Wt Readings from Last 3 Encounters: 10/16/16 66.2 kg (145 lb 15.1 oz) (92 %, Z= 1.38)* * Growth percentiles are based on CDC 2-20 Years data. Ht Readings from Last 3 Encounters: 10/16/16 166.5 cm (65.55) (84 %, Z= 1.01)* * Growth percentiles are based on CDC 2-20 Years data. Body mass index is 23.88 kg/(m^2). 88 %ile (Z= 1.18) based on CDC 2-20 Years BMI-for-age data using vitals from 10/16/2016. 92 %ile (Z= 1.38) based on CDC 2-20 Years [id number] data using vitals from 10/16/2016. 84 %ile (Z= 1.01) based on CDC 2-20 Years [id number] data using vitals from 10/16/2016. General Appearance: well appearing, alert, no acute distress, cooperative, adolescent female Head: normocephalic, atraumatic Eye: no injection, no discharge, PERRLA Ear: TM's clear bilaterally, canals clear bilaterally Nose: septum midline, pink mucosa, no discharge Mouth\Throat: moist mucosa, oropharynx without exudate, erythema or thrush Lymph Nodes: no lymphadenopathy Chest\Lungs: Air entry is good bilaterally, wheezing is not appreciated, crackles are not appreciated, no retractions, expiratory phase is within normal limits Abdomen: abdomen is soft, nontender, and nondistended without hepatosplenomegaly or masses and normoactive bowel sounds are present Heart: S1/S2 RRR and no murmur, no rub, gallop or click, clear diastole, 2+ and equal femoral and radial pulses, brisk capillary refill Skin: Warm and dry, Cyanosis is absent MSK:Clubbing is absent Neurological: normal strength and muscle tone, Cranial Nerves grossly intact Labs: No results found for any previous visit. CXR: none EKG (10/12/2016): reviewed by me -sinus rhythm, leftward axis, incomplete right bundle branch block; HR bpm 91, RI 170/ QRS 116/ QTC 450 msec EKG (10/16/2016): sinus rhythm, leftward axis, possible left atrial enlargement, incomplete right bundle branch block; HR bpm 90, RI 177/ QRS 104/ QTC 436 msec ECHO (10/16/2016): trivial to mild mitral regurgitation without stenosis or prolapse, otherwise normal intracardiac structure and function including the tricuspid, aortic and pulmonic valves; normal biventricular size and function, unobstructed aortic arch with normal coronary artery origins; normalsystemic and pulmonary venous return Assessment: Chitra has described recurrent symptoms of nausea and emesis, during peak exercise, specifically during nordic hill intervals and her competitive races. By history, she appears exceptionally dedicatedand fit to her [employer] craft, and trains often with her [employer] and family. She is most concerned about how this feeling is affecting her performance. She came today with her father, who was very attentive to her symptoms, and had similar concerns, also including her EKG findings. Chitra had a normal cardiac physical exam today. Her first EKG in early October showed a sinus rhythm leftward axis, and incomplete right bundle branch block. Her QTC on that EKG, calculated by the computer was 477msec, however, my measurement by hand was 450msec. Her repeat EKG today showed againa mild leftward axis with possible atrial enlargement, and a similar incomplete right bundle branchblock. Her QTC today was 436msec with normal T wave morphologic appearance. Given her EKGs and symptoms, we performed a transthoracic echocardiogram today, which overall demonstrated normal cardiac structure and function. In particular, both the myocardium and the coronary artery origins appeared normal. She did have some very mild mitral regurgitation, which was just a bit more then I would expect at this age, but unlikely to be related to her symptoms; in fact, I couldnot hear it on the physical exam, which was was reassuring. I would like to see her back in 2 yearsto get another assessment of her mitral valve. Overall, I would expect this to continue to be in the very mild range and not cause any cardiac symptoms. I had a pleasant and lengthy conversation with both Chitra and her father regarding her symptoms. I too would like her to be very competitive and achieve at a high level. However, at this point, it isunclear to me why Chitra should feel nauseated for a primary cardiac reason. I would like to complete our evaluation with a 24-hour Holter monitor and invite Chitra back in the next few weeks to complete an exercise stress test. If both of these are normal, I do not think she will require any additional cardiac testing. I am not restricting her from any athletic activities in the meantime. I also took the liberty to discuss the case briefly with the Chief of our Pediatric GI division, Dr. Tristin Arboleda. He has seen a few high-level athletes present with similar symptoms, which can beconsistent with some level of gastroparesis during physical exertion. We both agreed that might be helpful for Chitra to arrange an appointment with his team to discuss her symptoms. At this point, Chitra should have normal pediatric care, without limitations to physical exercise. There is no current indication for antibiotic prophylaxis. We remain available to you, the patient and family if there are any cardiovascular concerns. Plan: 1. Emesis with exercise - 24-hour Holter monitor: we will be in touch with father regarding results, - Exercise stress test: Scheduled for October 25, 2016 - Recommend additional referral to GI team, Dr. Myron Arboleda - case briefly reviewed - Case and plan reviewed with Dr. Bonds at primary care office 2. Mild mitral regurgitation - Follow-up with pediatric cardiology in 2 years: EKG and echocardiogram It was a pleasure to see Chitra with her father in our office today. Thank you again for allowing our Pediatric Cardiology team to participate in her cardiovascular care. As always, please do not hesitate to contact our office with any questions or concerns ?? Respectfully, ?? Kiran Bella MD 10/16/2016 9:15 Division of Pediatric Cardiology, [facility] Enrollment in [facility]: Reviewed. Patient will enroll at home. I spent a total of 60 minutes with this patient in face to face time spent in counseling and coordination of care for pediatric cardiology as described in the above note. Addendum: Holter (10/16/2016) min 45/ avr 85/ max 185; no ectopy/arrthythmia; Wenckebach x1 during sleep; baseline intraventricular conduction delay Exercise Test (10/25/16) Normal stress test after maximal exercise, above average (>90%) capacity for age. HR max 203, BP174/70. Test was stopped after 15min 9sec (Stage ) due to dyspnea, leg pain, and nausea. QT interval decrease during test. Manual pre-exercise QTc 441 (HR 78), and 450msec (99bmp) at 6min recovery. No ectopy/arrhythmias were noted. Baseline conduction delay present. I reviewed Chitra's test results in person after her exercise stress on October 25, 2016, with both her and her father. Chitra was disappointed in her exercise test, and thought she could do more. We reviewed that her exercise capacity is above average. Also reviewed that her baseline heart rate on Holter was lower than she had previously thought. Reviewed above cardiac counseling. Reviewed plan to make appointment with Dr. Arboleda. Chitra and/addie to reach out if additional questions or concerns. No exercise limitations at this time. Cardiology F/u in 2 years: mild mitral regurgitation. Kiran Bella MD 10/30/2016 14:52 documented in this encounter Plan of Treatment Not on file documented as of this encounter Procedures Procedure Name Priority Date/Time Associated Diagnosis Comments PROCEDURE REPORTS - SCANNED 11/06/2016 8:55 EDT ECG REPORT - SCANNED 10/19/2016 11:14 EDT ECHOCARDIOGRAM Routine 10/16/2016 10:30 EDT Tachycardia EKG 12-LEAD Routine 10/16/2016 8:23 EDT Tachycardia documented in this encounter Results * PROCEDURE REPORTS - SCANNED (11/06/2016 8:55 EDT) 11/06/2016 8:55 EDT us Scan 2 Recycling Specialist PROCEDURE/MINOR SURGICAL OR DERABLES Final Result * ECG REPORT - SCANNED (10/19/2016 11:14 EDT) 10/19/2016 11:1 4 EDT us Scan 2 Recycling Specialist PROCEDURE/MINOR SURGICAL OR DERABLES Final Result * HOLTER MONITOR (10/16/2016 11:36 EDT) 10/16/2016 11:3 6 EDT Narrative [facility] EKG - 10/30/2016 12:25 EDT ? [facility] Pediatrics ? Test Date: ?2016-10-16 Pat Name: ? CHITRA ROLAND ? Department: ?? FA ? Room: ? Gender: ? Female ? Schedule Hanger: ?? MALISSA : ?2005 ? Requested By: JENA Shafer Order Number: [id number] ? Reading : ?? KIRAN BELLA MD ? Interpretive Statements Monitoring for 24 hours revealed predominant sinus rhythm with minimum, average, and maximum rates 45, 85, and 185 per minute respectively. 1. Significant ventricular ectopy was not present (0%). ?? 2. Significant supraventricular ectopy was not present (0%). 3. Sinus tachycardia was present at the maximal heart rate. 4. Significant pauses and and/or atrioventricular block were not present. Baseline intraventricular conduction delay present. 5. Sinus rate was lowest during sleep, with one instance of Wenckebach; otherwise normal atrioventricular conduction. Symptoms: No cardiovascular diary symptoms reported. IMPRESSION: ??Cardiac monitoring within normal limits for age. Baseline intraventricular conduction delay present. I reviewed the tracing and have either agreed or edited the findings in this report. Electronically Signed On 10-30-16 12:25:56 EDT by KIRAN BELLA MD. Procedure Note Kiran Bella MD - 10/30/2016 [facility] Test Date: 2016-10-16 Pat Name: CHITRA ROLAND Department: FA Room: Gender: Female Schedule Hanger: MALISSA : 2005 Requested By: JENA Shafer Order Number: [id number] Reading MD: KIRAN BELLA MD Interpretive Statements Monitoring for 24 hours revealed predominant sinus rhythm with minimum, average, and maximum rates 45, 85, and 185 per minute respectively. 1. Significant ventricular ectopy was not present (0%). 2. Significant supraventricular ectopy was not present (0%). 3. Sinus tachycardia was present at the maximal heart rate. 4. Significant pauses and and/or atrioventricular block were notpresent. Baseline intraventricular conduction delay present. 5. Sinus rate was lowest during sleep, with one instance of Wenckebach; otherwise normal atrioventricular conduction. Symptoms: No cardiovascular diary symptoms reported. IMPRESSION: Cardiac monitoring within normal limits for age. Baseline intraventricular conduction delay present. I reviewed the tracing and have either agreed or edited the findings inthis report. Electronically Signed On 10-30-16 12:25:56 EDT by KIRAN ENRIQUE. us Kiran Bella MD CARDIAC ECG ORDERABLES Final Result [facility] EKG * ECHOCARDIOGRAM (10/16/2016 10:30 EDT) Anatomical Region Laterality Modality Other 10/16/2016 10:3 0 EDT Narrative 10/19/2016 10:52 EDT Pediatric Cardiology [address] [place] [address] Date of study: 10/16/2016 Transthoracic Echocardiogram Report M-mode, complete 2D, complete spectral Doppler, and color Doppler *STUDY CONCLUSIONS* Summary: - Normal cardiac anatomy and performance. - Normal left ventricular size, wall thickness, and systolic function. - No intracardiac shunts visualized. - Trivial tricuspid regurgitation with normal estimated RV systolic ??pressure. - Trivial to mild mitral regurgitation without stenosis or prolapse. *PATIENT PRESENTATION* Age: ?13.8yr Height: ? 166.5cm (65.6in ) S/D Pressure: 122 / 70 Weight: ? 66.2kg (145.6lb ) BSA: ?1.76m^2 Location: ? Echocardiography Laboratory Facility: ? [facility] Sand Operator: ??Moni Porter Attending: ?Kiran Bella MD Referring: ?Ricarda Garcia V Ordering: ? Kiran Bella MD Test start time: ??Test start time: 09:30 AM. Test stop time: ??Test stop time: 10:45 AM. *PROCEDURE DATA* Procedure information: ??Pertinent images and digital data are archived for permanent storage and are available for subsequent review. ??Study status: ??Routine. Transthoracic echocardiography. ??M-mode, complete 2D, complete spectral Doppler, and color Doppler. Transthoracic echocardiography was performed. Images were obtained using an [employer] 16 cardiac ultrasound machine. ??Blood pressure: ? 122/70 ?Height percentile: 84.1. ?Weight percentile: 91.6. *INDICATIONS AND HISTORY* Indications: ?? R00.0 Tachycardia. *CARDIAC ANATOMY* ANATOMIC RELATIONSHIPS Normal atrial situs. Concordant atrioventricular alignment. Ventricular d-loop. Concordant ventriculoarterial connection. Normally related great arteries. VEINS AND ATRIA Atrial septum: ??No evidence for a significant atrial septal defect. Left atrium: ??The atrium is normal in size. Receives the pulmonary veins. Right atrium: ??The atrium is normal in size. The right superior vena cava and coronary sinus drain normally into the right atrium. The inferior vena cava also drains normally into the right atrium. Systemic veins: Inferior vena cava: The vessel is normal in size. The vessel course is normal. Superior vena cava: The vessel is normal in size. The vessel course is normal. Pulmonary veins: ??Normal pulmonary venous connection and drainage to the left atrium. A-V CANAL Tricuspid valve: ??The annulus is normal-sized. The valve is structurally normal. The leaflets are normal thickness. ?Transvalvular velocity is within the normal range. There is no evidence for stenosis. There is trivial regurgitation directed centrally. Mitral valve: ??The annulus is normal-sized. The valve is structurally normal. The leaflets are normal thickness. No echocardiographic evidence for prolapse. ?Transvalvular velocity is within the normal range. There is no evidence for stenosis. There is trivial to mild regurgitation, with a single jet. Normal mitral infow E/A ratio and deceleration time. VENTRICLES Right ventricle: ??The cavity size is normal. Wall thickness is normal. The outflow tract shows no obstruction. Systolic function is satisfactory. ??Based on the velocity of the tricuspid regurgitation jet the estimated right ventricular pressure is 19mm Hg plus the right atrial pressure. Ventricular septum: ?? The septum is intact. Left ventricle: ??The cavity size is normal. Wall thickness is normal. The outflow tract shows no obstruction. Systolic function is satisfactory. Wall motion is normal; there are no regional wall motion abnormalities. CONOTRUNCUS Aortic valve: ?? The valve is structurally normal. The valve is trileaflet. ?Transvalvular velocity is within the normal range. There is no stenosis. There is no regurgitation. Pulmonary valve: ?The valve is structurally normal. ?Transvalvular velocity is within the normal range. There is no regurgitation. Coronaries: ??Normal coronary artery origins. GREAT ARTERIES Aorta: ??Normal unobstructed left-sided aortic arch. Normal pulsatile descending aortic doppler flow profile. Aortic root: The aortic root is not dilated. Pulmonary arteries: ?? The proximal branch pulmonary arteries are normal. Systemic-pulmonary shunts: ??No evidence for a patent ductus arteriosus. PERICARDIUM There is no significant pericardial effusion. *MEASUREMENT TABLES* Left ventricle ? Value ? Reference ?? Z LV area, ED, PSAX PM ? 24.80 cm^2 ? ---- LV area, ES, PSAX PM ? 10.70 cm^2 ? ---- LV fx area change, PSAX PM ? 57 ?% ? ---- LV epicardial area, ED, PSAX PM ?39.20 cm^2 ? ---- LV ID, major axis, ED, A4C ? 8.62 ??cm ?6.86 - 9.29 0.9 LV ID, major axis, ES, A4C ? 7.24 ??cm ?5.44 - 7.70 1.2 LV ID/bsa, major axis, ED, A4C ? 4.9 ?? cm/m^2 ?? ---- LV ID/bsa, major axis, ES, A4C ? 4.1 ?? cm/m^2 ?? ---- LV apex cone length, ED, A4C ? 9.48 ??cm ? ---- LV end-diastolic volume, A/L ? 178 ?? ml ?100 - 181 ?? 1.8 LV end-systolic volume, A/L ?65 ?ml ?38 - 77 ? 1.0 LV ejection fraction, A/L ?0.64 ?0.55 - 0.72 0.1 LV end-diastolic volume/bsa, A/L ? 101 ?? ml/m^2 ?? ---- LV end-systolic volume/bsa, A/L ?37 ?ml/m^2 ?? ---- LV ID, ED, MM ?5.26 ??cm ?4.25 - 5.68 0.8 LV ID, ES, MM ?3.61 ??cm ?2.53 - 3.89 1.1 LV ID/bsa, ED, MM ?3.0 ?? cm/m^2 ?? ---- LV ID/bsa, ES, MM ?2.1 ?? cm/m^2 ?? ---- LV fx shortening, MM ? 31 ?% ? 29 - 43 ? -1.2 LV mid-wall fx shortening, MM ?17 ?% ? ---- LV PW thickness, ED, MM ?0.82 ??cm ?0.65 - 1.13 -0.6 IVS/LV PW ratio, ED, MM ?1.01 ?0.71 - 1.42 -0.3 LV relative wall thickness, ED, ?0.31 ? ---- MM LV wall mass, MM ? 154 ?? g ? 107 - 247 ?? -0.3 LV wall mass/bsa, MM ? 88 ?g/m^2 ?? ---- LV mass/height, MM ? 0.93 ??g/cm ? ---- LV mass/height^2.7, MM ? 38.88 g/m^2.7 ---- Ventricular septum ? Value ? Reference ?? Z IVS thickness, ED, MM ?0.83 ??cm ?0.67 - 1.24 -0.8 Aortic valve ? Value ? Reference ?? Z Aortic annulus diameter, S ? 2.16 ??cm ?1.72 - 2.40 0.6 Aorta ?Value ? Reference ?? Z Aortic root ID, S ?2.57 ??cm ?2.21 - 3.34 -0.7 Aortic root ID, STJ, S ? 2.48 ??cm ?1.84 - 2.71 0.9 Ascending aorta ID, A-P ?2.49 ??cm ?1.97 - 3.01 0.0 Mitral valve ? Value ? Reference ?? Z Mitral annulus diameter, M-L ? 2.90 ??cm ?2.05 - 3.53 0.3 Mitral E-wave peak velocity ?1 ? m/sec ?? 0.58 - 1.29 0.4 Mitral A-wave peak velocity ?0.63 ??m/sec ?? 0.21 - 0.68 1.5 Mitral deceleration time ? 125 ?? ms ?85 - 226 ?-0.8 Mitral peak gradient, D ?4 ? mm Hg ?? ---- Mitral E/A ratio, peak ? 1.59 ?1.05 - 3.48 -1.1 Tricuspid valve ?Value ? Reference ?? Z Tricuspid annulus diameter, M-L ?3.01 ??cm ?2.23 - 3.72 0.1 Legend: (L) ??and ??(H) ??susan values outside specified reference range. I have personally reviewed the images and have reviewed and edited the reported findings. Electronically signed by Kiran Bella MD 10/19/2016 10:52 Procedure Note Kiran Bella MD - 10/19/2016 Pediatric Cardiology [address] [place] [address] Date of study: 10/16/2016 Transthoracic Echocardiogram Report M-mode, complete 2D, complete spectral Doppler, and color Doppler *STUDY CONCLUSIONS* Summary: - Normal cardiac anatomy and performance. - Normal left ventricular size, wall thickness, and systolic function. - No intracardiac shunts visualized. - Trivial tricuspid regurgitation with normal estimated RV systolic pressure. - Trivial to mild mitral regurgitation without stenosis or prolapse. *PATIENT PRESENTATION* Age: 13.8yr Height: 166.5cm (65.6in ) S/D Pressure: 122 / 70 Weight: 66.2kg (145.6lb ) BSA: 1.76m^2 Location: Echocardiography Laboratory Facility: [facility] Sand Operator: Moni Porter Attending: Kiran Bella MD Referring: Ricarda Garcia V Ordering: Kiran Bella MD Test start time: Test start time: 09:30 AM. Test stop time: Test stop time: 10:45 AM. *PROCEDURE DATA* Procedure information: Pertinent images and digital data are archived for permanent storage and are available for subsequent review. Study status: Routine. Transthoracic echocardiography. M-mode, complete 2D, complete spectral Doppler, and color Doppler. Transthoracic echocardiography was performed. Images were obtained using an epiq 16 cardiac ultrasound machine. Blood pressure: 122/70 Height percentile: 84.1. Weight percentile: 91.6. *INDICATIONS AND HISTORY* Indications: R00.0 Tachycardia. *CARDIAC ANATOMY* ANATOMIC RELATIONSHIPS Normal atrial situs. Concordant atrioventricular alignment. Ventricular d-loop. Concordant ventriculoarterial connection. Normally related great arteries. VEINS AND ATRIA Atrial septum: No evidence for a significant atrial septal defect. Left atrium: The atrium is normal in size. Receives the pulmonary veins. Right atrium: The atrium is normal in size. The right superior vena cava and coronary sinus drain normally into the right atrium. The inferior vena cava also drains normally into the right atrium. Systemic veins: Inferior vena cava: The vessel is normal in size. The vessel course is normal. Superior vena cava: The vessel is normal in size. The vessel course is normal. Pulmonary veins: Normal pulmonary venous connection and drainage to the left atrium. A-V CANAL Tricuspid valve: The annulus is normal-sized. The valve is structurally normal. The leaflets are normal thickness. Transvalvular velocity is within the normal range. There is no evidence for stenosis. There is trivial regurgitation directed centrally. Mitral valve: The annulus is normal-sized. The valve is structurally normal. The leaflets are normal thickness. No echocardiographic evidence for prolapse. Transvalvular velocity is within the normal range. There is no evidence for stenosis. There is trivial to mild regurgitation, with a single jet. Normal mitral infow E/A ratio and deceleration time. VENTRICLES Right ventricle: The cavity size is normal. Wall thickness is normal. The outflow tract shows no obstruction. Systolic function is satisfactory. Based on the velocity of the tricuspid regurgitation jet the estimated right ventricular pressure is 19mm Hg plus the right atrial pressure. Ventricular septum: The septum is intact. Left ventricle: The cavity size is normal. Wall thickness is normal. The outflow tract shows no obstruction. Systolic function is satisfactory. Wall motion is normal; there are no regional wall motion abnormalities. CONOTRUNCUS Aortic valve: The valve is structurally normal. The valve is trileaflet. Transvalvular velocity is within the normal range. There is no stenosis. There is no regurgitation. Pulmonary valve: The valve is structurally normal. Transvalvular velocity is within the normal range. There is no regurgitation. Coronaries: Normal coronary artery origins. GREAT ARTERIES Aorta: Normal unobstructed left-sided aortic arch. Normal pulsatile descending aortic doppler flow profile. Aortic root: The aortic root is not dilated. Pulmonary arteries: The proximal branch pulmonary arteries are normal. Systemic-pulmonary shunts: No evidence for a patent ductus arteriosus. PERICARDIUM There is no significant pericardial effusion. *MEASUREMENT TABLES* Left ventricle Value Reference Z LV area, ED, PSAX PM 24.80 cm^2 ---- LV area, ES, PSAX PM 10.70 cm^2 ---- LV fx area change, PSAX PM 57 % ---- LV epicardial area, ED, PSAX PM 39.20 cm^2 ---- LV ID, major axis, ED, A4C 8.62 cm 6.86 - 9.29 0.9 LV ID, major axis, ES, A4C 7.24 cm 5.44 - 7.70 1.2 LV ID/bsa, major axis, ED, A4C 4.9 cm/m^2 ---- LV ID/bsa, major axis, ES, A4C 4.1 cm/m^2 ---- LV apex cone length, ED, A4C 9.48 cm ---- LV end-diastolic volume, A/L 178 ml 100 - 181 1.8 LV end-systolic volume, A/L 65 ml 38 - 77 1.0 LV ejection fraction, A/L 0.64 0.55 - 0.72 0.1 LV end-diastolic volume/bsa, A/L 101 ml/m^2 ---- LV end-systolic volume/bsa, A/L 37 ml/m^2 ---- LV ID, ED, MM 5.26 cm 4.25 - 5.68 0.8 LV ID, ES, MM 3.61 cm 2.53 - 3.89 1.1 LV ID/bsa, ED, MM 3.0 cm/m^2 ---- LV ID/bsa, ES, MM 2.1 cm/m^2 ---- LV fx shortening, MM 31 % 29 - 43 -1.2 LV mid-wall fx shortening, MM 17 % ---- LV PW thickness, ED, MM 0.82 cm 0.65 - 1.13 -0.6 IVS/LV PW ratio, ED, MM 1.01 0.71 - 1.42 -0.3 LV relative wall thickness, ED, 0.31 ---- MM LV wall mass, MM 154 g 107 - 247 -0.3 LV wall mass/bsa, MM 88 g/m^2 ---- LV mass/height, MM 0.93 g/cm ---- LV mass/height^2.7, MM 38.88 g/m^2.7 ---- Ventricular septum Value Reference Z IVS thickness, ED, MM 0.83 cm 0.67 - 1.24 -0.8 Aortic valve Value Reference Z Aortic annulus diameter, S 2.16 cm 1.72 - 2.40 0.6 Aorta Value Reference Z Aortic root ID, S 2.57 cm 2.21 - 3.34 -0.7 Aortic root ID, STJ, S 2.48 cm 1.84 - 2.71 0.9 Ascending aorta ID, A-P 2.49 cm 1.97 - 3.01 0.0 Mitral valve Value Reference Z Mitral annulus diameter, M-L 2.90 cm 2.05 - 3.53 0.3 Mitral E-wave peak velocity 1 m/sec 0.58 - 1.29 0.4 Mitral A-wave peak velocity 0.63 m/sec 0.21 - 0.68 1.5 Mitral deceleration time 125 ms 85 - 226 -0.8 Mitral peak gradient, D 4 mm Hg ---- Mitral E/A ratio, peak 1.59 1.05 - 3.48 -1.1 Tricuspid valve Value Reference Z Tricuspid annulus diameter, M-L 3.01 cm 2.23 - 3.72 0.1 Legend: (L) and (H) susan values outside specified reference range. I have personally reviewed the images and have reviewed and edited the reported findings. Electronically signed by Kiran Bella MD 10/19/2016 10:52 us Kiran Bella MD CARDIAC ECHO ORDERABLES Mirta gretchen Result * EKG 12-LEAD (10/16/2016 8:23 EDT) 10/16/2016 8:23 EDT Narrative [facility] EKG - 10/19/2016 11:09 EDT ? [facility] ? Test Date: ?2016-10-16 Pat Name: ? CHITRA ROLAND ? Department: ?? [id number] ? Room: ? Gender: ? F ?Schedule Hanger: ?? [id number] : ?2005 ? Requested By: JENA Shafer Order Number: [id number] ? Reading : ?? KIRAN BELLA MD ? Measurements Intervals ?[place] ? Rate: ? 90 ? P: ?55 RI: ? 177 ?QRS: ?13 QRSD: ? 104 ?T: ?31 QT: ? 356 ? QTc: ?436 ? Interpretive Statements ..PEDIATRIC ECG INTERPRETATION SINUS RHYTHM Leftward axis Possible LEFT ATRIAL ENLARGEMENT Incomplete right bundle branch block No previous ECG available for comparison I reviewed the tracing and have either agreed or edited the findings in this report. Electronically Signed On 10-19-16 11:09:12 EDT by KIRAN BELLA MD. Procedure Note Kiran Bella MD - 10/19/2016 [facility] Test Date: 2016-10-16 Pat Name: CHITRA ROLAND Department: [id number] Room: Gender: F Schedule Hanger: [id number] : 2005 Requested By: JENA Shafer Order Number: [id number] Reading MD: KIRAN BELLA MD Measurements Intervals [place] Rate: 90 P: 55 RI: 177 QRS: 13 QRSD: 104 T: 31 QT: 356 QTc: 436 Interpretive Statements ..PEDIATRIC ECG INTERPRETATION SINUS RHYTHM Leftward axis Possible LEFT ATRIAL ENLARGEMENT Incomplete right bundle branch block No previous ECG available for comparison I reviewed the tracing and have either agreed or edited the findings inthis report. Electronically Signed On 10-19-16 11:09:12 EDT by KIRAN ENRIQUE. us Kiran Bella MD CARDIAC ECG ORDERABLES Final Result [facility] EKG documented in this encounter Visit Diagnoses Diagnosis Tachycardia- Primary Tachycardia, unspecified Tachycardia- Primary Tachycardia, unspecified documented in this encounter Care Teams Learning Analyst Relationship Specialty Start Date End Date Ricarda Garcia MD [address] [place] [address] PCP - General 10/16/16 12/05/17 documented as of this encounter
--- OUTSIDE RECORDS SUMMARY | 2023-12-28 16:31 | XMS_ITS | Encounter Summary ---
Author Organization [facility] Address [address] [place] [address] Care Team Providers Care Crosscutter Name Role Phone Jose Chua MD, Ricarda Primary Care Provider [phone] Reason for Visit * Reason Onset Date Comments Cardiac Testing 10/18/2016 Encounter Details Date Type Department Care Team (Late st Contact Info) Description 10/18/2016 Telephone [facility] Pediatric Cardiology - Main [address] [address] Alpa Hallman RN [address] [place] [address] Cardiac Testing Social History Tobacco Use Types Packs/Day Years Used Date Smoking Tobacco: Never Smokeless Tobacco: Never Comments No Sex and Gender Information Value Date Recorded Sex Assigned at Not on file Legal Sex Female 10:55 EDT Gender Identity Not on file Sexual Orientation Not on file documented as of this encounter Miscellaneous Notes * Telephone Encounter - Alpa Hallman RN - 10/18/2016 5550 EDT Left detailed message and sent instructions in mail for ETT on 10/25. documented in this encounter Plan of Treatment Not on file documented as of this encounter Procedures Procedure Name Priority Date/Time Associated Diagnosis Comments EXERCISE TOLERANCE TEST WAVEFORM Routine 10/25/2016 14:54 EDT documented in this encounter Results * EXERCISE TOLERANCE TEST WAVEFORM (10/25/2016 14:54 EDT) Anatomical Region Laterality Modality Other 10/25/2016 14:5 4 EDT Narrative 10/25/2016 15:44 EDT For report of this Waveform, see associated Image Study. ? [facility] Stress ? Test Date: ?2016-10-25 Pat Name: ? CHITRA ROLAND ? Department: ? Room: ? Gender: ? F ?Cereal Popper: ?? : ?2005 ? Requested By: JENA Shafer Order Number: [id number] ?Violeta ANG: ? Interpretive Statements Procedure Note WELT RANDER, IMAGING - 10/25/2016 For report of this Waveform, see associated Image Study. [facility] Stress Test Date: 2016-10-25 Pat Name: CHITRA ROLAND Department: Room: Gender: F Cereal Popper: : 2005 Requested By: JENA Shafer Order Number: [id number] Violeta ANG: Interpretive Statements us Carlos Quintana MD CARDIAC SERVICES ORDERABLES Final Result documented in this encounter Visit Diagnoses Diagnosis Tachycardia- Primary Tachycardia, unspecified documented in this encounter Care Teams Crosscutter Relationship Specialty Start Date End Date Ricarda Garcia MD [address] [place] [address] PCP - General 10/16/16 12/05/17 documented as of this encounter
--- OUTSIDE RECORDS SUMMARY | 2023-12-28 16:31 | XMS_ITS | Encounter Summary ---
Author Organization [facility] Address [address] [place] [address] Care Team Providers Care Director Of Acquisition Marketing Name Role Phone Jaydon Priscilla John KIM Primary Care Provider [phone] Reason for Visit * Reason Comments Follow-up Encounter Details Date Type Department Care Team (Late st Contact Info) Description 12/06/2017 12:30 EDT Office Visit [facility] Pediatric Cardiology - [address] [phone] FlyKiran philip MD [address] [place] [address] Mitral valve insufficiency, unspecified etiology (Primary Dx); Vomiting, intractability of vomiting not specified, presence of nausea not specified, unspecified vomiting type; Tachycardia Discharge Disposition: Auto Discharge Social History Tobacco [...] Body Mass Index 25.8 12/06/2017 1146 EDT Body Mass Index Percentile 91.16% 12/06/2017 114 6 EDT Growth Chart: CDC (Girls, 2- 20 Years) documented in this encounter Discharge Diagnoses Diagnosis I34.0 Nonrheumatic mitral (valve) insufficiency-I34.0[ICD-10-CM] R11.10 Vomiting, unspecified-R11.10[ICD-10-CM] R00.0 Tachycardia, unspecified-R00.0[ICD-10-CM] documented in this encounter Discharge Disposition Disposition Code Departure Means Destination Auto Discharge documented in this encounter Progress Notes * Kiran Bella MD - 12/06/2017 1230 EDT Chief Complaint: throwing up during exercise Chitra Roland is a 12 y.o. female seen today, 12/06/2017, in the outpatient Pediatric Cardiology offices of the [facility], for follow up evaluation regarding abdominaldiscomfort and emesis during exercise. She was referred by her primary care team, including Priscilla Simental DIE CASTING MACHINE OPERATOR, and accompanied by her father. I initially evaluated in the Chitra last October, and this note incorporates some of my initial history and ongoing management; for a more complete initial history please see that consult note dated October 16, 2016. Chitra continues to describe an ongoing and evolving history of throwing up when I exercise. Sinceher initial visit about 1 year ago, she thinks that her symptoms have increased. She describes thatcommonly she will start to exercise--which might include walking, hiking, strength training, rollerskiing, or biking--and shortly after commencing the workout she will begin to feel nauseated. That nauseous sensation will continue and increase until she will often times ultimately vomit, and then afterward will be able to continue the workout, but often feels tired and will look pale and feel dizzy. She is rarely able to complete a moderate run without feeling nauseated. She remains enrolled in the [employer], where she is now in ninth grade, and a system that includes both academics and more elite athletics. She is training double sessions twice a week, and otherwise daily in the afternoon for about 1.5-2 hours. She and her father continue to have concerns that her endurance is less than that of her peers and family members. For example, while walking with friends up [place], while her peers were otherwise fine at a gentle walking/hiking pace, Chitra started to feel nauseous and then vomited. She was tired but I still went. She felt more tired after this event, and her friends noticed that she was a bit dizzy and pale. Her father describes a similar event this past summer, while out hiking with anrdea, near [facility]: about 1 mile into a walking/hiking pace, while his heart rate was about 110 bpm, Chitra's was too fast to count and they had to stop the hike. Yaritza will typically wear a Polar wristwatch that has a heart rate monitor built in, but does not wear the accompanying chest strap. Chitra feels that her symptoms have become progressively worse in terms of the frequency and consistency with which she will feel nauseous when working out. This has evolved over the past winter and spring, to the point where the summer she deferred more competitive athletics. She has resumed athletics now this fall but her symptoms are the same as when they were in the spring. Apart from the symptoms during athletics she has been otherwise completely well at school at home when at rest. There is no history of chest pain, syncope, cyanosis, pallor, respiratory distress, diaphoresis or palpitations, either during exertion, or at rest. Chitra's father continues to be an excellent historian and advocate for his daughter. After observing Chitra carefully, he notes that her heart rate will increase to about 195-200 bpm, reaching that rate faster than he would normally expect, and there is an automatic ramp-up, which happens more frequently he thinks for his other son and family members. He also continues to express and aknowledge the of Chitra's mother (now 3 years ago from lymphoma), and also the of a close neighbor (also from a similar lymphoma); the family is now pursuing therapy. Chitra has been otherwise healthy and has not had any concerning illnesses this past year. Chitra hashad normal adolescent growth and development. She is very active, as mentioned above, and is able to keep up with her peers and older brother. There is no history of emergency department visits nor hospital admissions for cardiac concerns. There is a first cousin who had an aortic valve replacement near 1 year of age. Otherwise there is no family history of congenital heart disease, pediatric arrhythmias, cardiac myopathies, channelopathies or sudden . She is on no chronic cardiac medications. The family also met with Dr. Arboleda of the pediatric GI service prior to today's visit. Past Medical History: History: term gestation, spontaneous vaginal delivery without complications Family History: Problem Relation Name Comments Cancer Mother Congenital heart defects Other cousin valve replacement in [facility] Heart Disease Paternal Grandfather pipe smoker Social History: Living Conditions ??? Lives with Father exclusively ??? Father's name Mariano Roland ??? Education Grade 9 ??? Reported academic performance Doing well Safety and Environmental Exposures ??? Pets Yes Medications: Outpatient Encounter Prescriptions as of 12/06/2017 Medication Sig Dispense Refill ??? cyanocobalamin, vitamin B-12, (VITAMIN B12 ORAL) Take by mouth daily. ??? ferrous sulfate (IRON ORAL) Take by mouth daily. No facility-administered encounter medications on file as of 12/06/2017. Allergies: No Known Allergies Review of Systems: A complete review of 10 systems was performed and was negative except as noted above. Objective: Vitals: 12/06/17 1146 12/06/17 1156 BP: 122/66 Pulse: 87 Resp: 16 SpO2: 100% Weight: 71.6 kg (157 lb 13.6 oz) Height: 166.6 cm (65.59) Wt Readings from Last 3 Encounters: 12/06/17 71.6 kg (157 lb 13.6 oz) (93 %, Z= 1.46)* 12/06/17 71.6 kg (157 lb 13.6 oz) (93 %, Z= 1.46)* 10/16/16 66.2 kg (145 lb 15.1 oz) (92 %, Z= 1.38)* * Growth percentiles are based on CDC 2-20 Years data. Ht Readings from Last 3 Encounters: 12/06/17 166.6 cm (65.59) (77 %, Z= 0.75)* 12/06/17 166.6 cm (65.59) (77 %, Z= 0.75)* 10/16/16 166.5 cm (65.55) (84 %, Z= 1.01)* * Growth percentiles are based on CDC 2-20 Years data. Body mass index is 25.8 kg/(m^2). 91 %ile (Z= 1.35) based on CDC 2-20 Years BMI-for-age data using vitals from 12/06/2017. 93 %ile (Z= 1.46) based on CDC 2-20 Years qbnyxd-yup-aet data using vitals from 12/06/2017. 77 %ile (Z= 0.75) based on CDC 2-20 Years vluhbrg-[id number] data using vitals from 12/06/2017. General Appearance: well appearing, alert, no acute distress, cooperative and pleasant adolescent female Head: normocephalic, atraumatic Eye: no [...] axis, incomplete right bundle branch block; HR 91bpm, CO 170/ QRS 116/ QTc 450 msec EKG (10/16/2016): sinus rhythm, leftward axis, possible left atrial enlargement, incomplete right bundle branch block; HR 90bpm, CO 177/ QRS 104/ QTc 436 msec EKG (12/06/2017): sinus rhythm, normal axis, intraventricular conduction delay; HR 64bpm, CO 171/ QRS 98/ QTC 441 msec Holter (10/16/2016) min 45/ avr 85/ max 185; no ectopy/arrthythmia; Wenckebach x1 during sleep; baseline intraventricular conduction delay ECHO (10/16/2016): trivial to mild mitral regurgitation without stenosis or prolapse, otherwise normal intracardiac structure and function including the tricuspid, aortic and pulmonic valves; normal biventricular size and function, unobstructed aortic arch with normal coronary artery origins; normalsystemic and pulmonary venous return Exercise Test () Normal stress test after maximal exercise, above average (>90%) capacity for age. HR max 203, BP174/70. Test was stopped after 15min 9sec (Stage ) due to dyspnea, leg pain, and nausea. QT interval decrease during test. Manual pre-exercise QTc 441 (HR 78), and 450msec (99bmp) at 6min recovery. No ectopy/arrhythmias were noted. Baseline conduction delay present. Assessment: Chitra has described primary and recurrent symptoms of nausea and emesis with exertion, now evolvingand increasing over the past year to include moderate exercise such as walking and hiking. In spiteof these challenging symptoms, she still appears exceptionally dedicated to her [employer] craft, and still trains often with her [employer] and family. Both Chitra and her father clearly communicate that her symptoms are increasing. Her cardiac exam and EKG both remain normal today. We did review that her prior testing (EKG, 24-hour Holter, echocardiogram and exercise stress test) was normal. However, I am still interested to know why Chitra feels an overwhelming sensation of nausea leading to emesis during light to moderate exercise, and that paired with her father's assessment that she is achieving a maximum heart rate faster than would be anticipated for an athlete of her fitness level. I would still like to know if there is a possible intermittent and/or catecholamine induced tachycardia, beyond the expected sinus rate, possibly responsible for her symptoms. To that end, I recommended that the family to take home a 48-hour Holter monitor, so that Chitra andher father re-create a moderately strenuous or more workout, that they both anticipate will re-create her symptoms, so that I might evaluate her heart rates before, during, and after exercise again, and importantly, during symptoms. Of note, we did attempt to do this last year with her exercise stress test, however, perhaps utilizing the heart rate monitor in her home setting will be more informative. Based on those results, I also discussed that I would be happy to confer with an adult electrophysiology colleague, who have additional experience with some of our elite adolescent athletes. I also briefly reviewed that Chitra's initial echocardiogram demonstrated normal cardiac structure and function. In particular, both the myocardium and the coronary artery origins appeared normal. Anna have some very mild mitral regurgitation, which was just a bit more then I would expect at her age, but unlikely to be related to her symptoms; in fact, I still could not hear it on the physical exam, which was was reassuring. I would like to see her back in 2 years to get another assessment ofher mitral valve. Overall, I would expect this to continue to be in the very mild range and not cause any cardiac symptoms. Chitra and her father also met with Dr. Arboleda of our ED after GI service, also this morning, who is recommended at baseline evaluation by his team. I discussed this case with Dr. Arboleda last year, and was happy to coordinate the visit with him today, and continue to work together to Chitra's benefit. I will be in touch with Chitra's father when her Holter monitor results are available. In the meantime, Chitra should have normal adolescent care, without limitations to physical exercise. There is no current indication for antibiotic prophylaxis. We remain available to you, the patient and family ifthere are any cardiovascular concerns. Plan: 1. Nausea/Emesis with exercise - 48-hour Holter monitor: to be worn during a scheduled cardio/aerobic workout - We will be in touch with father regarding results: - Will consider additional discussion with Adult EP service, pending results - Follow up GI testing as recommended by Dr. Myron Arboleda today - Case reviewed today with primary care team 2. Mild mitral regurgitation - Follow-up with pediatric cardiology in 2 years: EKG and echocardiogram It was a pleasure to see Chitra with her father in our office today. Thank you again for allowing our Pediatric Cardiology team to participate in her cardiovascular care. As always, please do not hesitate to contact our office with any questions or concerns. ?? Respectfully, ?? Kiran Bella MD 12/06/2017 16:01 Division of Pediatric Cardiology, [facility] I spent a total of 40 minutes in wlwm-tq-vmlz time with this patient today, and all of that time was spent in counseling and coordination of care for pediatric [facility]. Addendum: Holter 48hrs: - sinus rhythm with minimum, average, and maximum rates of 47/, 86, 207 beats per minute - No significant ectopy -Sinus tachycardia was present at the maximal heart rate. - Normal sinus node response to documented cardiovascular workout (between 3:40pm-4:40pm on Dec 2).- No arrhythmias during exertion. -Infrequent intermittent Wenckebach present over night, without significant pauses. Labs: normal (see flowsheet) Case reviewed with Dr. Hollis (Adult EP). Agreed with telemetry review during exertion (Holter). Noadditional testing recommended. Reviewed all results with Chitra's father. Her workout while wearing the Holter was extensive: about1 hour of hard interval training, up hills. She felt tired, but did not vomit. We discussed that at this point, her cardiac testing has not produced an objective reason for her exertional symptoms. It was reassuring that two stress tests (one her at [facility], one conducted in the field via Holter) both demonstrated a normal heart rate response. The family will continue to follow up with Dr. Arboleda. I am happy to see Chitra back in about 2 years to reassess her mitral regurgitation. In the meantime, I remain available to the medical team and the family if I can be of help. Kiran Bella MD 12/13/2017 17:51 Division of Pediatric Cardiology, [facility] documented in this encounter Plan of Treatment Not on file documented as of this encounter Procedures Procedure Name Priority Date/Time Associated Diagnosis Comments PROCEDURE REPORTS - SCANNED 12/21/2017 6:04 EST PROCEDURE REPORTS - SCANNED 12/13/2017 17:39 EST ECG REPORT - SCANNED 12/06/2017 15:46 EDT EKG 12-LEAD Routine 12/06/2017 12:05 EDT Mitral valve insufficiency, unspecified etiology documented in this encounter Results * PROCEDURE REPORTS - SCANNED (12/21/2017 6:04 EST) 12/21/2017 6:04 EST us Scan 2 Dust Collector Attendant PROCEDURE/MINOR SURGICAL OR DERABLES Final Result * PROCEDURE REPORTS - SCANNED (12/13/2017 17:39 EST) 12/13/2017 17:3 9 EST us Scan 2 Dust Collector Attendant PROCEDURE/MINOR SURGICAL OR DERABLES Final Result * ECG REPORT - SCANNED (12/06/2017 15:46 EDT) 12/06/2017 15:4 6 EDT us Scan 2 Dust Collector Attendant PROCEDURE/MINOR SURGICAL OR DERABLES Final Result * EKG 12-LEAD (12/06/2017 12:05 EDT) 12/06/2017 12:0 5 EDT Narrative [facility] EKG - 12/06/2017 15:44 EDT ? [facility] ? Test Date: ?2017-12-06 Pat Name: ? CHITRA ROLAND ? Department: ?? [id number] ? Room: ? Gender: ? Female ? 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 Requested By: JENA KIRAN N Order Number: [id number] ? Reading MD: ?? KIRAN BELLA MD ? Measurements Intervals ?[place] ? Rate: ? 64 ? P: ?41 CO: ? 171 ?QRS: ?20 QRSD: ? 98 ? T: ?26 QT: ? 427 ? QTc: ?441 ? Interpretive Statements ..PEDIATRIC ECG INTERPRETATION Sinus rhythm with sinus arrhythmia Normal [place] Nonspecific intra-ventricular conduction delay Compared to ECG 10/16/2016 08:23:52 Left-axis deviation no longer present Incomplete right bundle-branch block no longer present I reviewed the tracing and have either agreed or edited the findings in this report. Electronically Signed On 12-06-2017 15:44:31 EDT by KIRAN BELLA MD. Procedure Note Kiran Bella MD - 12/06/2017 [facility] Test Date: 2017-12-06 Pat Name: CHITRA ROLAND Department: [id number] Room: Gender: Female Otr Van Cdl Truck Driver: : 2005 Requested By: JENA Shafer Order Number: [id number] Reading MD: KIRAN BELLA MD Measurements Intervals [place] Rate: 64 P: 41 CO: 171 QRS: 20 QRSD: 98 T: 26 QT: 427 QTc: 441 Interpretive Statements ..PEDIATRIC ECG INTERPRETATION Sinus rhythm with sinus arrhythmia Normal [place] Nonspecific intra-ventricular conduction delay Compared to ECG 10/16/2016 08:23:52 Left-axis deviation no longer present Incomplete right bundle-branch block no longer present I reviewed the tracing and have either agreed or edited the findings inthis report. Electronically Signed On 12-06-2017 15:44:31 EDT by KIRAN ENRIQUE. us Kiran Bella MD CARDIAC ECG ORDERABLES Final Result [facility] EKG documented in this encounter Visit Diagnoses Diagnosis Mitral valve insufficiency, unspecified etiology- Primary Vomiting, intractability of vomiting not specified, presence of nausea not specified, unspecified vomiting type Tachycardia Tachycardia, unspecified documented in this encounter Care Teams Director Of Acquisition Marketing Relationship Specialty Start Date End Date Priscilla Interiano NP [address] [id number] PCP - General 12/06/17 documented as of this encounter
--- OUTSIDE RECORDS SUMMARY | 2023-12-28 16:31 | XMS_ITS | Encounter Summary ---
Author Organization [facility] Address [address] [place] [address] Care Team Providers Care Stencil Inspector Name Role Phone Priscilla Interiano NP Primary Care Provider [phone] Reason for Referral * Radiology Services (Routine) - Authorized Specialty Diagnoses / Procedures Referred By Cindy lockwood Referred To Contact Radiology Diagnoses Abdominal pain, unspecified abdominal location Procedures NM GASTRIC EMPTYING SCAN CHG GASTRIC EMPTYING IMAGING STUDY Tristin Arboleda MD Phone: tel: fax: [facility] [place]iology [place] [address] Phone: tel: fax: Referral ID Status Reason Start Date Expiration Date V isits Requested Visits Authorized [id number] Authorized 12/06/2017 1 1 Reason for Visit * Reason Comments Nausea Emesis * Referral (Routine/Next Available) - Closed Specialty Diagnoses / Procedures Referred By Contact Referred To Contact Pediatric Gastroenterology Diagnoses Pre-syncope Carlos Quintana MD Phone: tel:[phone] fax:[phone] [facility] - Main [address] [address] Phone: tel: fax: Referral ID Status Reason Start Date Expiration Date V isits Requested Visits Authorized [id number] Closed Specialty Services Required 10/16/2017 1 1 Encounter Details Date Type Department Care Team (Late st Contact Info) Description 12/06/2017 10:30 EDT Office Visit [facility] - Main [address] [address] Tristin Arboleda MD [address] [place] [phone] Gastroparesis (Primary Dx); Nausea; Vomiting, intractability of vomiting not specified, presence of nausea not specified, unspecified vomiting type; Abdominal pain, unspecified abdominal location Discharge Disposition: Auto Discharge Social History Tobacco [...] Time Taken Comments Blood Pressure 122/66 12/06/2017 1026 EDT Pulse 87 12/06/2017 1026 EDT Temperature - - Respiratory Rate - - Oxygen Saturation - - Inhaled Oxygen Concentration - - Weight 71.6 kg (157 lb 13.6 oz) 12/06/2017 1026 EDT Height 166.6 cm (5' 5.59) 12/06/2017 1026 EDT Body Mass Index 25.8 12/06/2017 1026 EDT Body Mass Index Percentile 91.16% 12/06/2017 102 6 EDT Growth Chart: [facility] (Girls, 2- 20 Years) documented in this encounter Discharge Diagnoses Diagnosis K31.84 Gastroparesis-K31.84[ICD-10-CM] R10.9 Unspecified abdominal pain-R10.9[ICD-10-CM] R11.10 Vomiting, unspecified-R11.10[ICD-10-CM] R11.0 Nausea-R11.0[ICD-10-CM] documented in this encounter Discharge Disposition Disposition Code Departure Means Destination Auto Discharge documented in this encounter Progress Notes * Tristin Arboleda MD - 12/06/2017 1030 EDT MASHA Daniels [address] [place] [address] Dear Ms. Interiano Chitra Clark was seen in the Pediatric Gastroenterology Clinic at the [facility] in consultation for nausea and emesis on 12/06/2017 at your request. Shewas accompanied by dad who provided the history. CC: Chief Complaint Patient presents with ??? Nausea ??? Emesis HISTORY: Chitra is seen in consultation today in the Pediatric GI Nutrition Clinic for the first time. She isbeing seen at the request of her primary provider, Priscilla Interiano, family nurse practitioner, because of problems with nausea and emesis. She is accompanied by her father. Chitra is an almost 13-year-old female who is otherwise in good health but has been having difficulty with recurrent episodes of nausea, emesis that is nonbloody and nonbilious, and dizziness. Chitra and her dad state that these episodes occur only when she is physically active and exerting herself with athletics or other physical activity such as biking, hiking, or skiing. Otherwise, she feels perfectly fine and well and has no concerns or issues when not doing these things. This has been going on for more than a year and in the past has had a very thorough and full evaluation by Dr Carlos Quintana of pediatric cardiology because along with these symptoms she also feels short of breath and that her heart is racing. Her workup has included a cardiac stress test with Holter monitor and echocardiogram, all of which have been normal. Her heart rate does get up into the 200s but with exertion and seems to be normal for her age. She is growing very well. She is the 90th percentile for both her height and weight as she always has been. She is highly athletic and very much enjoys being an avid skier, hiker, and biker, but because of these symptoms has not been able to do these things much or well recently. She has quit all of her competitive teams that she is to participate with. She fully denies abdominal pain, nausea, emesis, diarrhea, constipation, or any symptomatology whenshe is not active or exerting herself. She does state that she is somewhat tired at times, but thisshe easily explains by being a high school freshman and busy with school studying and social life. She has no significant past medical history, though on her workup from a cardiac standpoint, she was found to have very mild mitral valve regurgitation. She has been on iron in the past to try to help her fatigue, but she was never found to be anemic. Of significance is that her mother 3 years ago from complications due to lymphoma, and it was soon after this that these symptoms began. She and her dad do not feel that this is related. She does not feel anxious, stressed, depressed, or sad, but the timing is such. Additionally, she has neversought out any form of professional counseling or therapy since her mother passed at such an early age. She has had no directed gastrointestinal interventions or testing. Finally, Chitra and her dad do state that she occasionally gets intermittent headaches, which seem to be possible migraines, though again this has not been evaluated nor treated as such. PAST MEDICAL, SURGICAL, FAMILY HISTORY, AND SOCIAL HISTORY: I have reviewed, verified, and personally updated the past medical, surgical, , and family history in the medical record. No past medical history on file. No past surgical history on file. Family History Problem Relation Age of Onset ??? Cancer Mother ??? Heart Disease Paternal Grandfather 63 pipe smoker ??? Congenital heart defects Other valve replacement in [facility] Patient Active Problem List Diagnosis Date Noted ??? Mitral valve regurgitation 10/20/2016 Priority: Medium Mild ??? Emesis 10/20/2016 Priority: Medium MEDICATIONS: cyanocobalamin, vitamin B-12, (VITAMIN B12 ORAL) ferrous sulfate (IRON ORAL) ALLERGIES: No Known Allergies REVIEW OF SYSTEMS: Complete review of systems and additional history were reviewed and is documented in the Pediatric GI Intake Questionaire and is scanned in to the EMR. PHYSICAL EXAM: Blood pressure 122/66, pulse 87, height 166.6 cm (65.59), weight 71.6 kg (157 lb 13.6 oz). Healthy, alert, well-nourished appearing. HEENT demonstrates normal extraocular movements. There isno icterus. Nose has no discharge. Mouth exam is normal. Neck is supple with no adenopathy. Thyroidis not palpable. Cardiac examination reveals regular rate and rhythm with no murmurs, heaves, or gallops. Lungs are clear to auscultation bilaterally. Abdomen is soft, non-tender, with no masses. Rectal exam is deferred at this time. There is no inguinal, axillary, or supraclavicular adenopathy. Extremities demonstrate no clubbing, telangiectasias, other lesions or rash. There is no edema. Neurologic examination is grossly normal. DATA/DIAGNOSTIC STUDIES: Labs: As above Radiology: As above I have discussed the patient with PCP and Pediatric cardiology (Dr. Bao Quintana). I have reviewed the medical record. History obtained from Chitra and her father IMPRESSION: Almost 13 yo female with recurrent nausea, emesis, dizziness, headache and shortness of breath withperceived tachycardia with exertion only. There are no GI complaints or concerns otherwise. There may be a functional component, such as stress-induced gastroparesis, with exertion. She possibly suffers from an autonomic dysfunction disorder Will initiate an evaluation for these, as well as have her revisit with Dr. Quintana If nothing comes of this testing, Dr. Quintana and I will discuss possible referral for evaluation by Dr. Hollis of autonomic dysfunction. She likes does have migraines, but I do not think these episodes are explained by migraines. RECOMMENDATIONS: Other Orders Placed This Visit Procedures ??? NM GASTRIC EMPTYING SCAN ??? Comprehensive Metabolic Panel (CMP) ??? Complete Blood Count and Differential ??? IgA ??? Tissue Transglutaminase Ab ??? Amylase ??? Lipase ??? T4, Free ??? TSH ??? Sed. Rate:Westergren (Do not order when looking for inflammation in patients with undiagnosed conditions. May be indicated when monitoring specific ch ??? C Reactive Protein (use to detect acute inflammation) Plan of care, including education on the safe and effective use of medication(s) and/or medical equipment if prescribed, was discussed with the family. They verbalized understanding and agreed to thetreatment options discussed. Thank you for allowing us to participate in the care of your patient. Please call our office with any questions. Tristin Arboleda MD Attending Physician Pediatric GI, Nutrition and Hepatology [facility] I spent a total of 60 minutes in face to face time with this patient today and 40 minutes of that time was spent in coordination of care and counseling the patient on the risks and treatment options for nausea and emesis. documented in this encounter Plan of Treatment Not on file documented as of this encounter Procedures Procedure Name Priority Date/Time Associated Diagnosis Comments NM GASTRIC EMPTYING SCAN Routine 12/18/2017 13:27 EST Abdominal pain, unspecified abdominal location documented in this encounter Results * NM GASTRIC EMPTYING SCAN (12/18/2017 13:27 EST) Anatomical Region Laterality Modality Other 12/18/2017 13:2 7 EST 12/18/2017 16:39 EST Narrative 12/18/2017 16:39 EST NM GASTRIC EMPTYING SCAN ??12/18/2017 1:27 PM Signs and Symptoms/Comments: ?? R10.9-Unspecified abdominal pain-ICD-10; abdominal pain . Technique: 0.54 mCi Tc-99m Sulfur Colloid tagged with egg whites with 2 slices of white bread, 30 grams of jam, and 120 ml of water was ingested by the patient. ??1 minute anterior and posterior mages were obtained immediately after completion of the meal, at 30 minutes, 60 minutes, 90 minutes, 120 minutes, 180 minutes and 240 minutes or up to 90 % of gastric emptying. ??Percent gastric emptying was calculated using a geometric mean curve fit method. Findings: Time to half emptyin.6 minutes. Retention at ??30 minutes: 95.66 %. ?( Rapid under 70% ) Retention at ??60 minutes: 91.12 %. ?( Rapid under 30%, Delayed over 90% ) Retention at ??90 minutes: 81.22 %. ? Retention at 120 minutes: 67.20 %. ? ( Delayed over 60% ) Retention at 180 minutes: 14.41 %. Retention at 240 minutes: 7.04 %. ? ( Delayed over 10% ) Impression: Delayed gastric emptying for solid food. References: Konstantin duarte al. Japanese Journal of Gastroenterology 2000. Camille et al. Gastroenterology 2006 Magalys et al. Japanese Journal of Gastroenterology 2006. I have personally reviewed the images and the above interpretation and agree with the findings. Procedure Note Joni Corcoran MD - 12/18/2017 NM GASTRIC EMPTYING SCAN 12/18/2017 1:27 PM Signs and Symptoms/Comments: R10.9-Unspecified abdominal pain-ICD-10; abdominal pain . Technique: 0.54 mCi Tc-99m Sulfur Colloid tagged with egg whites with 2 slices of white bread, 30 grams of jam, and 120 ml of water was ingested by the patient. 1 minute anterior and posterior mages were obtained immediately after completion of the meal, at 30 minutes, 60 minutes, 90 minutes, 120 minutes, 180 minutes and 240 minutes or up to 90 % of gastric emptying. Percent gastric emptying was calculated using a geometric mean curve fit method. Findings: Time to half emptyin.6 minutes. Retention at 30 minutes: 95.66 %. ( Rapid under 70% ) Retention at 60 minutes: 91.12 %. ( Rapid under 30%, Delayed over 90% ) Retention at 90 minutes: 81.22 %. Retention at 120 minutes: 67.20 %. ( Delayed over 60% ) Retention at 180 minutes: 14.41 %. Retention at 240 minutes: 7.04 %. ( Delayed over 10% ) Impression: Delayed gastric emptying for solid food. References: Toarinas et al. Japanese Journal of Gastroenterology 2000. Camille et al. Gastroenterology 2006 Magalys et al. [employer] Journal of Gastroenterology 2006. I have personally reviewed the images and the above interpretation and agree with the findings. Tristin Arboleda MD [facility] ORDERABLES Fin al Result * C REACTIVE PROTEIN (12/06/2017 12:32 EDT) C Reactive Protein <7.0 <10.0 mg/L 12/06/2017 14:18 EDT [facility] Blood specimen (specimen) BLOOD SPECIMEN / Unknown 12/06/2017 12:32 EDT 12/06/2017 13:48 EDT Tristin Arboleda MD CHEMISTRY & BLOOD GAS ORDERABLES Final Result [facility] [address] [place] [address] * SED. RATE:WESTERGREN (12/06/2017 12:32 EDT) Pathologist [facility] Sed. Rate Westergren 2 0 - 20 mm/hr 12/06/2017 14:03 EDT [facility] Blood specimen (specimen) BLOOD SPECIMEN / Unknown 12/06/2017 12:32 EDT 12/06/2017 13:48 EDT Tristin Arboleda MD HEMATOLOGY & PF4 ORDE RABLES Final Result [facility] [address] [place] [address] * TSH (12/06/2017 12:32 EDT) [facility] TSH 2.88 0.50 - 4.50 uIU/ml 12/06/2017 14:47 EDT [facility] Comment: The results of this assay can be falsely lowered due to the consumption of Biotin. Blood specimen (specimen) BLOOD SPECIMEN / Unknown 12/06/2017 12:32 EDT 12/06/2017 13:48 EDT Tristin Arboleda MD CHEMISTRY & BLOOD GAS ORDERABLES Final Result Performing Organization Address City/[facility]/ZIP Co de Phone Number [facility] [address] [place] [address] * T4 FREE (12/06/2017 12:32 EDT) [facility] T4, Free 0.9 0.8 - 2.0 ng/dl 12/06/2017 14:32 EDT [facility] Blood specimen (specimen) BLOOD SPECIMEN / Unknown 12/06/2017 12:32 EDT 12/06/2017 13:48 EDT Tristin Arboleda MD CHEMISTRY & BLOOD GAS ORDERABLES Final Result [facility] [address] [place] [address] * LIPASE (12/06/2017 12:32 EDT) Lipase 37 <181 U/L 12/06/2017 14:18 EDT [facility] Blood specimen (specimen) BLOOD SPECIMEN / Unknown 12/06/2017 12:32 EDT 12/06/2017 13:48 EDT Trisitn Arboleda MD CHEMISTRY & BLOOD GAS ORDERABLES Final Result Performing Organization Address [facility] Co de Phone Number [facility] [address] [place] [address] * AMYLASE (12/06/2017 12:32 EDT) Amylase 60 U/L 12/06/2017 14:18 EDT [facility] Blood specimen (specimen) BLOOD SPECIMEN / Unknown 12/06/2017 12:32 EDT 12/06/2017 13:48 EDT Tristin Arboleda MD CHEMISTRY & BLOOD GAS ORDERABLES Final Result Performing Organization Address [facility] Phone Number [facility] [address] [place] [address] * TISSUE TRANSGLUTAMINASE AB (12/06/2017 12:32 EDT) Tissue Transglut Ab <1.2 <4.0 U/mL 12/07/2017 12:48 EDT [facility] Comment: The use of this assay and normal range (result interpretation) has not been established for pediatric samples. Results were obtained with the [employer] QUANTA Lite R h-tTG IgA SERG. A negative result may be due to IgA deficiency and does not rule out celiac disease. Blood specimen (specimen) BLOOD SPECIMEN / Unknown 12/06/2017 12:32 EDT 12/06/2017 13:48 EDT Tristin Arboleda MD IMMUNOLOGY AND SEROLO GY ORDERABLES Final Result Performing Organization Address [facility]/ZIP Co de Phone Number [facility] [address] [place] [address] * IGA (12/06/2017 12:32 EDT) IgA 139 47 - 249 mg/dL 12/07/2017 14:39 [facility] Blood specimen (specimen) BLOOD SPECIMEN / Unknown 12/06/2017 12:32 EDT 12/06/2017 13:48 EDT Tristin Arboleda MD CHEMISTRY & BLOOD GAS ORDERABLES Final Result [facility] [address] [place] [address] * COMPLETE BLOOD COUNT AND DIFFERENTIAL (12/06/2017 12:32 EDT) WBC 5.01 4.5 - 13.0 K/cmm 12/06/2017 14:02 [facility] RBC 4.47 4.10 - 5.10 M/cmm 12/06/2017 14:02 [facility] Hemoglobin 13.0 12.0 - 16.0 gm/dl 12/06/2017 14:02 [facility] HCT 38.1 36.0 - 46.0 % 12/06/2017 14:02 [facility] MCV 85 78 - 102 fl 12/06/2017 14:02 [facility] MCH 29.1 pg 12/06/2017 14:02 [facility] MCHC 34.1 gm/dl 12/06/2017 14:02 [facility] RDW-CV 13.2 % 12/06/2017 14:02 [facility] RDW-SD 40.8 fl 12/06/2017 14:02 [facility] PLT 274 156 - 312 K/cmm 12/06/2017 14:02 [facility] MPV 10.4 fl 12/06/2017 14:02 [facility] % Neutrophils 60.9 % 12/06/2017 14:02 [facility] % Lymphocytes 27.9 % 12/06/2017 14:02 [facility] % Monocytes 8.2 % 12/06/2017 14:02 [facility] % Eosinophils 2.0 % 12/06/2017 14:02 [facility] % Basophils 0.8 % 12/06/2017 14:02 [facility] % Immature Grans 0.2 % 12/06/2017 14:02 [facility] ABS Neutrophils 3.05 K/cmm 8 14:02 [facility] ABS Lymphs 1.40 K/cmm 12/06/2017 14:02 [facility] ABS Monocytes 0.41 K/cmm 12/06/2017 14:02 [facility] ABS Eosinophils 0.10 K/cmm 8 14:02 [facility] ABS Basophils 0.04 K/cmm 12/06/2017 14:02 [facility] ABS Immature Grans 0.01 K/cmm 12/06/2017 14:02 [facility] Type of Diff: Automated 12/06/2017 14:02 [facility] Blood specimen (specimen) BLOOD SPECIMEN / Unknown 12/06/2017 12:32 EDT 12/06/2017 13:48 EDT us Tristin Arboleda MD PACKAGES & DNA PROBE ORDERABLES Final Result [facility] [address] [place] [address] * COMPREHENSIVE METABOLIC PANEL (CMP) (12/06/2017 12:32 EDT) Potassium 4.5 3.3 - 4.6 mEq/L 12/06/2017 14:13 [facility] Sodium 140 136 - 145 mEq/L 12/06/2017 14:13 [facility] Chloride 104 96 - 110 mEq/L 12/06/2017 14:13 [facility] CO2 27 22 - 32 mEq/L 12/06/2017 14:13 [facility] Total Alkaline Phosphatase 73 62 - 209 U/L 12/06/2017 14:13 [facility] Bilirubin, Total 0.7 <1.0 mg/dl 12/07/19 18 14:13 [facility] AST 19 10 - 30 U/L 12/06/2017 14:13 [facility] ALT 19 <31 U/L 12/06/2017 14:13 [facility] Albumin 4.7 3.7 - 5.6 g/dl 12/06/2017 14:13 [facility] Total Protein 7.3 6.3 - 8.6 g/dl 12/06/2017 14:13 [facility] Creatinine 0.66 0.46 - 0.81 mg/dl 12/06/2017 14:13 [facility] GFR, Calculated Age <18 ml/min/1.7 3m2 12/06/2017 14:13 [facility] BUN 11 8 - 21 mg/dl 12/06/2017 14:13 [facility] Calcium 9.9 9.2 - 10.7 mg/dl 12/06/2017 14:13 [facility] Calculated Calcium 9.3 9.2 - 10.7 mg/dl 12/06/2017 14:13 [facility] Glucose, Serum 99 70 - 100 mg/dl 12/06/2017 14:13 [facility] Fasting? No 12/06/2017 12:33 [facility] Blood specimen (specimen) BLOOD SPECIMEN / Unknown 12/06/2017 12:32 EDT 12/06/2017 13:48 EDT us Tristin Arboleda MD CHEMISTRY & BLOOD GAS ORDERABLES Final Result [facility] [address] [place] [address] documented in this encounter Visit Diagnoses Diagnosis Gastroparesis- Primary Nausea Nausea alone Vomiting, intractability of vomiting not specified, presence of nausea not specified, unspecified vomiting type Abdominal pain, unspecified abdominal location documented in this encounter Historical Medications * This list may reflect changes made after this encounter. ferrous sulfate (IRON ORAL) Take by mouth daily. cyanocobalamin, vitamin B-12, (VITAMIN B12 ORAL) Take by mouth daily. added in this encounter Care Teams Stencil Inspector Relationship Specialty Start Date End Date Priscilla Interiano NP [address] [place] [address] PCP - General 12/06/17 documented as of this encounter
--- OUTSIDE RECORDS SUMMARY | 2023-12-28 16:31 | XMS_ITS | Encounter Summary ---
Author Organization [facility] Address [address] [place] [address] Care Team Providers Care Family Sociologist Name Role Phone Jose Chua MD, Elaine Primary Care Provider [phone] Reason for Visit * Reason Onset Date Comments Appointment Related 10/23/2016 Encounter Details Date Type Department Care Team (Late st Contact Info) Description 10/23/2016 [facility]phone [facility] [place] [address] Alpa Hallman, RN [address] [place] [address] Appointment Related Social History Tobacco Use Types Packs/Day Years Used Date Smoking Tobacco: Never Smokeless Tobacco: Never Comments No Sex and Gender Information Value Date Recorded Sex Assigned at Not on file Legal Sex Female 10:55 EDT Gender Identity Not on file Sexual Orientation Not on file documented as of this encounter Miscellaneous Notes * Telephone Encounter - Alpa Hallman RN - 10/23/2016 1235 EDT LM that ETT slot for Sunday, 10/24 was open if Sunday worked better for family then Sunday, 10/25. Asked for family to call back. LM with plan on 10/25 ETT as previously scheduled. documented in this encounter Plan of Treatment Not on file documented as of this encounter Visit Diagnoses Not on filedocumented in this encounter Care Teams Family Sociologist Relationship Specialty Start Date End Date Ricarda Garcia MD [address] [facility] [address] PCP - General 10/16/16 12/05/17 documented as of this encounter
--- OUTSIDE RECORDS SUMMARY | 2023-12-28 16:31 | XMS_ITS | Encounter Summary ---
Author Organization [facility] Address [address] [place] [address] Care Team Providers Care Director Of Database Marketing Name Role Phone Jose Chua MD, Ricarda Primary Care Provider [phone] Reason for Visit * Reason Comments Cardiac Testing * Cardiology (STAT) - Closed Specialty Diagnoses / Procedures Referred By Contac t Referred To Contact Diagnoses Tachycardia Procedures HOLTER MONITOR Kiran Bella MD Phone: tel: fax: Referral ID Status Reason Start Date Expiration Date Visits Re quested Visits Authorized [id number] Closed 10/16/2016 1 1 Encounter Details Date Type Department Care Team (Latest Contact Info) Description 10/16/2016 13:00 EDT Procedure visit [facility] Cardiology - Main [place] [address] [place] [address] Holter, McHv Tachycardia (Primary Dx) Social History Tobacco Use Types [...] Date/Time Associated Diagnosis Comments HOLTER MONITOR Routine 10/16/2016 11:36 EDT Tachycardia documented in this encounter Results * HOLTER MONITOR (10/16/2016 11:36 EDT) 10/16/2016 11:3 6 EDT Narrative [facility] EKG - 10/30/2016 12:25 EDT ? [facility] ? Test Date: ?2016-10-16 Pat Name: ? CHITRA ROLAND ? Department: ?? FA ? Room: ? Gender: ? Female ? Heel Seat Fitter Machine: ?? MALISSA : ?2005 ? Requested By: JENA Shafer Order Number: [id number] ? Reading MD: ?? KIRAN BELLA MD ? Interpretive Statements [...] Note Kiran Bella MD - 10/30/2016 [facility] Test Date: 2016-10-16 Pat Name: CHITRA ROLAND Department: FA Room: Gender: Female Heel Seat Fitter Machine: MALISSA : 2005 Requested By: JENA Shafer Order Number: [id number] Reading MD: KIRAN BELLA MD Interpretive Statements [...] Electronically Signed On 10-30-16 12:25:56 EDT by KRIAN ENRIQUE. us Kiran Bella MD CARDIAC ECG ORDERABLES Final Result [facility] EKG documented in this encounter Visit Diagnoses Diagnosis Tachycardia- Primary Tachycardia, unspecified documented in this encounter Care Teams Director Of Database Marketing Relationship Specialty Start Date End Date Ricarda Garcia MD [address] [place] [address] PCP - General 10/16/16 12/05/17 documented as of this encounter
== END 2023-12-28 16:29 | disposition home or self-care (01) ==
LOC: LBN 16:28
PROVIDERS: Visit Provider Nurse Practitioner Family
DX: S01.332A Puncture wound without foreign body of left ear, initial encounter (principal)
CPT/HCPCS: 87070; 87205

== ENCOUNTER 2024-02-20 08:23 | Emergency (ER) | payer MEDICAID, SELFPAY ==
[2024-02-20] VITALS (7 sets, daily range): BP systolic 118–131; BP diastolic 66–83; PULSE 63–75; RESP 16; TEMP 34.9; O2SAT 99–100
--- NOTE | 2024-02-20 08:41 | W.ED.GENAD ---
Discharge Plan Disposition Patient Disposition: Home Condition: Stable Discharge Details Clinical Impression: Constipation Primary Care Provider: None,None ED Provider: Filippo Hernández Home Meds and New Rx's Prescriptions: Continued albuterol sulfate 90 mcg/actuation HFA aerosol inhaler 2 puff inhalation Q6H PRN (Reason: shortness of breath or wheezing) Qty: 6.7 0RF ibuprofen 200 MG capsule 400 mg PO HS PRN norgestimate-ethinyl estradiol 0.25-35 mg-mcg tablet 1 tab PO DAILY Patient Comments: TAKE ONE TABLET BY MOUTH EVERY DAY Discharge Instructions Instructions: Constipation, Adult ED Additional Instructions: You were seen in the emergency department for your left lower quadrant abdominal pain. Your laboratory workup shows no signs of infection or electrolyte abnormality, no inflammatory markers or elevated, your CT scan shows only increased amount of stool in the colon indicating constipation which can be painful. Please try an [id number] laxative like MiraLAX for relief. Please return to the ED for severe increased abdominal pain especially fever, shortness of breath, chest pain, intractable nausea or vomiting. Discharge Data Discharge Date/Time-TO BE ENTERED AT DEPARTURE: 02/20/24 10:47 HPI General Date/Time Provider Initiated Documentation: 02/20/24 08:40. HPI Narrative: 19 year-old female presents to ED today by POV/ambulating with a chief complaint of LLQ abdominal pain, sudden sharp pain with onset around 0730, vomited due to pain. Quality described as sharp, resolved currently, no radiation to diarrhea, fever, chest pain, shortness of breath, pelvic pain, dysuria, endorses normal bowel movements. Severity is described as severe. Palliating factors include Zofran and ibuprofen. Provoking factors include nothing specific. Events leading up to the incident/Associated Symptoms: Patient was treated for pneumonia 1.5 weeks ago. Patient not anticoagulated. Related Data Home Medications ?Medication ?Instructions ?Recorded ?Confirmed ibuprofen 200 mg capsule 400 mg PO HS PRN 11/23/16 02/20/24 albuterol sulfate 90 mcg/actuation 2 puff inhalation Q6H PRN 02/11/24 02/20/24 aerosol inhaler shortness of breath or wheezing #6.7 grams norgestimate 0.25 mg-ethinyl 1 tab PO DAILY 02/20/24 02/20/24 estradiol 35 mcg tablet Previous Rx's ?Medication ?Instructions ?Recorded albuterol sulfate 90 mcg/actuation 2 puff inhalation Q6H PRN 02/11/24 aerosol inhaler shortness of breath or wheezing #6.7 grams Allergies Allergy/AdvReac Type Severity Reaction Status Date / Time No Known Allergies Allergy Unverified 02/20/24 08:32 General Stated Complaint: Abd Prob ELENA: 3 Review of Systems All systems reviewed & are unremarkable except as noted in HPI and below Exam Narrative Exam Narrative: GENERAL APPEARANCE: Well-nourished, non-toxic, awake and alert, atraumatic, no acute distress. SKIN: Warm, pink, dry, intact, without rashes/lesions/ulcerations. HEAD: Normocephalic, atraumatic, normal hair distribution for gender/age. EYES: Normal conjunctiva, no exudates on lids/lashes. ENT: Nares patent, no circumoral cyanosis, no facial swelling NECK: Supple, trachea midline, painless cervical ROM. LUNGS/CHEST: Lungs CTA bilaterally, non-labored respirations, normal A/P diameter, symmetrical expansion, no chest wall deformity HEART (CV/PV): Regular rate and rhythm without murmur, no peripheral edema, no JVD. ABDOMEN: Soft, non-distended, no guarding, left lower quadrant abdominal tenderness without rebound tenderness, no peritoneal signs, left CVA tenderness to percussion MSK: Normal ROM, no swelling/deformity to bilateral UEs or LEs, moving all extremities without weakness, no cyanosis, spine midline without tenderness, normal curvature. NEURO: Mental Status AAOx4 - alert to person, place, time, events No facial droop, no forehead involvement. Motor: No focal weakness - strength 5/5 in bilateral UEs and LEs, proximal and distal, symmetric. Sensory: sensation intact to light touch globally. Gait normal: patient ambulated without ataxia into ED room. PSYCH: euthymic, cooperative, pleasant, appropriate speech Course Vital Signs Vital signs: Vital Signs Temperature 34.9 C L 02/20/24 08:27 Pulse 75 02/20/24 08:27 Respiratory Rate 16 02/20/24 08:27 Blood Pressure 131/83 02/20/24 08:27 Pulse Oximetry 99 02/20/24 08:27 Temperature 34.9 C L 02/20/24 08:27 Temperature Source Tympanic 02/20/24 08:27 Pulse 75 02/20/24 08:27 Respiratory Rate 16 02/20/24 08:27 Blood Pressure 131/83 02/20/24 08:27 Pulse Oximetry 99 02/20/24 08:27 Medical Decision Making This dictation utilizes qbfaw-kz-yqzy dictation software and may contain unedited grammatical errors. 19 year-old female presents to ED today by POV/ambulating with a chief complaint of LLQ abdominal pain, sudden sharp pain with onset around 0730, vomited due to pain. Quality described as sharp, resolved currently, no radiation to diarrhea, fever, chest pain, shortness of breath, pelvic pain, dysuria, endorses normal bowel movements. Severity is described as severe. Palliating factors include Zofran and ibuprofen. Provoking factors include nothing specific. Events leading up to the incident/Associated Symptoms: Patient was treated for pneumonia 1.5 weeks ago. Patients' medical history: Noncontributory. Family and social history: Noncontributory. Pertinent exam findings / vital signs include left lower quadrant abdominal tenderness without rebound tenderness, no peritoneal signs, left CVA tenderness to percussion, benign cardiopulmonary status, nontoxic and afebrile. Differential / pathologies of concern include diverticulitis, pyelonephritis, ovarian cyst, colitis, inflammatory bowel disease, constipation, gastroenteritis, renal colic. Diagnostic studies of: -CBC, CMP, lipase, UA, CRP/ESR, magnesium, CT ABD/pelvis with contrast. -CBC shows no leukocytosis, no anemia -CMP shows no actionable abnormality -CRP/ESR negative -Lipase negative -UA without signs of infection -CT scan shows only increased stool quantity and likely constipation as source of pain Interventions of: -Zofran. ED Course/Assessment/Plan: 19-year-old female had sudden onset sharp left lower abdominal pain this morning x 1, did vomit from the pain, entire workup is negative for any infectious etiology or inflammatory bowel disease or other surgical emergency, CT only shows increased stool volume likely source of the pain is constipation, there are no visualized ovarian cysts, she is otherwise young and healthy advised her to try MiraLAX for trial of relief, Zofran to go. Strict return criteria for severe increase in abdominal pain, black or bloody stools, intractable nausea or vomiting or other emergent concerns. Findings not consistent with diverticulitis, colitis, SBO, ovarian cyst or torsion, other emergent pathology. Disposition of Constipation. Patient verbalized understanding of the plan and return to ED criteria and engaged in shared decision making. Medical Records Medical records reviewed: Yes I reviewed the patient's medical records. Imaging Data Radiologic Study: Attestation: I personally reviewed and interpreted this imaging study as follows: Imaging: CT Scan Radiologist's impression: EXAM: CT ABDOMEN PELVIS W CLINICAL HISTORY: LLQ tenderness. TECHNIQUE: Imaging Protocol: Axial computed tomography images with coronal and sagittal reformatted images were created and reviewed CONTRAST MATERIAL: Intravenous: Omnipaque 350 Contrast volume:74 ml Oral: no COMPARISON: No exams were available for comparison FINDINGS: ABDOMEN and PELVIS: Lung Bases: No acute findings. Liver: Normal density. No suspicious mass. Gallbladder and biliary tract: No radiodense calculus. No wall thickening or pericholecystic fluid. No biliary dilation. Pancreas: Normal density. No abnormal calcifications or inflammatory process. No evidence of mass. Spleen: Normal. Kidneys: Normal size, contour and axis. No radiodense stones. No obstructive uropathy. No suspicious masses seen. Adrenal glands: No masses seen. Vasculature: Abdominal aorta non-dilated. Soft tissues: Unremarkable. Bladder: Nearly empty. No gross wall thickening. No calculi.No focal mass. Bowel: No obstruction. No bowel wall thickening. Appendix normal. Increased quantity of stool throughout colon. Peritoneal cavity: No ascites. No focal collection. No mesenteric inflammatory response. No free air. Bones: Unremarkable for age. Reproductive organs: Unremarkable. No ovarian cysts. Lymph nodes: No pathologically enlarged lymph nodes. IMPRESSION:: No acute abnormality in the abdomen or pelvis. Increased quantity of stool throughout the colon, consistent with constipation. Lab Data Lab results reviewed: Yes I reviewed the patient's lab results. Labs: Laboratory Tests Range/Units 02/20/24 02/20/24 09:00 09:05 WBC (4.4-10.8) 10^3/uL 5.58 RBC (3.93-5.22) 10^6/uL 4.32 Hgb (11.2-15.7) g/dL 12.4 Hct (36.0-46.0) % 37.4 MCV (80-95) fL 87 MCH (27.0-33.0) pg 28.7 MCHC (32.0-36.0) % 33.2 RDW (11.7-14.6) % 12.7 Plt Count (130-400) 10^3/uL 303 MPV (8.0-11.0) fL 9.7 Immature Gran % % 0.4 Neutrophils % % 66.7 Lymphocytes % % 22.8 Monocytes % % 6.3 Eosinophils % % 2.7 Basophils % % 1.1 Nucleated RBC % (0.0-0.3) % 0.0 Absolute Neutrophils (1.2-6.7) 10^3/uL 3.73 Absolute Lymphocytes (1.2-3.4) 10^3/uL 1.27 Absolute Monocytes (0.1-0.8) 10^3/uL 0.35 Absolute Eosinophils (0.0-0.7) 10^3/uL 0.15 Absolute Basophils (0.0-0.2) 10^3/uL 0.06 ESR (0-20) mm/hr 6 Sodium (136-145) mmol/L 141 Potassium (3.5-5.1) mmol/L 3.9 Chloride (98-107) mmol/L 104 Carbon Dioxide (21.0-32.0) mmol/L 30.1 Anion Gap (3-11) mmol/L 6.9 BUN (7-18) mg/dL 14 Creatinine (0.55-1.02) mg/dL 0.9 Est GFR (CKD-EPI 2020) (mL/min/1.73m2) 93.28 Glucose (74-106) mg/dL 94 Calcium (8.5-10.1) mg/dL 8.8 Magnesium (1.8-2.4) mg/dL 1.8 Total Bilirubin (0.2-1.0) mg/dL 0.30 AST (15-37) U/L 13 L ALT (14-59) U/L 20 Alkaline Phosphatase (46-116) U/L 52 C-Reactive Protein (<or=0.5) mg/dL < 0.50 Total Protein (6.4-8.2) g/dL 7.1 Albumin (3.4-5.0) g/dL 3.4 Lipase (<78) U/L 39 Urine Color (Yellow) Yellow Urine Clarity (Clear) Clear Urine pH (5-8) 5.5 Ur Specific [place] (1.005-1.025) >= 1.030 H Urine Protein (Neg-Trace) mg/dL Negative Urine Ketones (Negative) mg/dL Negative Urine Blood (Negative) Negative Urine Nitrite (Negative) Negative Urine Bilirubin (Negative) Negative Urine Urobilinogen (Up to 0.2) mg/dL 0.2 Ur Leukocyte Esterase (Negative) Negative Urine Glucose (Negative) mg/dL Negative Quality:SDOH Health Related Social Needs: No Data to Display PFSH All Active Problems (Updated 02/20/24 @ 10:28 by AVILA Jaramillo) Constipation (Acute) Need for HPV vaccine (Acute) needs HPV #2 Medical History (Updated 02/20/24 @ 10:28 by AVILA Jaramillo) Fracture of metatarsal of right foot, closed Term of infant full term, no complications. wt 7lbs Family History Mother Personal history of malignant neoplasm 2016 Father Hyperlipidemia Brother No problems noted. Social History Smoking/Tobacco Use Status: Never Smoking risk assessment performed?: Yes Alcohol Intake: current Alcohol Intake frequency: holidays/special occasions only Drug use: Rarely Substance use type: marijuana Housing: house Do you feel safe at home: Yes Do you feel safe in your relationship?: Yes
--- NOTE | 2024-02-20 08:47 | DI.CT_ITS ---
Exam(s) CT ABDOMEN PELVIS W EXAM: CT ABDOMEN PELVIS W CLINICAL HISTORY: LLQ tenderness. TECHNIQUE: Imaging Protocol: Axial computed tomography images with coronal and sagittal reformatted images were created and reviewed CONTRAST MATERIAL: Intravenous: Omnipaque 350 Contrast volume:74 ml Oral: no COMPARISON: No exams were available for comparison FINDINGS: ABDOMEN and PELVIS: Lung Bases: No acute findings. Liver: Normal density. No suspicious mass. Gallbladder and biliary tract: No radiodense calculus. No wall thickening or pericholecystic fluid. No biliary dilation. Pancreas: Normal density. No abnormal calcifications or inflammatory process. No evidence of mass. Spleen: Normal. Kidneys: Normal size, contour and axis. No radiodense stones. No obstructive uropathy. No suspicious masses seen. Adrenal glands: No masses seen. Vasculature: Abdominal aorta non-dilated. Soft tissues: Unremarkable. Bladder: Nearly empty. No gross wall thickening. No calculi.No focal mass. Bowel: No obstruction. No bowel wall thickening. Appendix normal. Increased quantity of stool thro ughout colon. Peritoneal cavity: No ascites. No focal collection. No mesenteric inflammatory response. No free air . Bones: Unremarkable for age. Reproductive organs: Unremarkable. No ovarian cysts. Lymph nodes: No pathologically enlarged lymph nodes. IMPRESSION:: No acute abnormality in the abdomen or pelvis. Increased quantity of stool throughout the colon, consistent with constipation. RADIATION DOSE DELIVERED: 406.21mGy.cm Total DLP DATA REPOSITORY: All CT scans at this facility are submitted to the National Radiology Data Registry (NRDR) Dose Index Registry (DIR) with the [employer] (A[employer]). RADIATION OPTIMIZATION: All CT scans at this facility use at least one of these dose optimization te chniques: automated exposure control; mA and/or kV adjustment per patient size (includes targeted exa ms where dose is matched to clinical indication); or iterative reconstruction.
[2024-02-20 09:11] LABS: Abs Immature Grans 0.02 10^3/uL (0.0-0.06); Absolute Basophil Count 0.06 10^3/uL (0.0-0.2); Absolute Eosinophil Count 0.15 10^3/uL (0.0-0.7); Absolute Lymphocyte Count 1.27 10^3/uL (1.2-3.4); Absolute Monocyte Count 0.35 10^3/uL (0.1-0.8); Absolute Neutrophil Count 3.73 10^3/uL (1.2-6.7); Basophils % 1.1 %; Eosinophils % 2.7 %; HCT 37.4 % (36.0-46.0); HGB 12.4 g/dL (11.2-15.7); Immature Grans % 0.4 %; Lymphocytes % 22.8 %; MCH 28.7 pg (27.0-33.0); MCHC 33.2 % (32.0-36.0); MCV 87 fL (80-95); MPV 9.7 fL (8.0-11.0); Monocytes % 6.3 %; Neutrophils % 66.7 %; Platelet Count 303 10^3/uL (130-400); RBC 4.32 10^6/uL (3.93-5.22); RDW 12.7 % (11.7-14.6); RDW-SD 40.2 fL; WBC 5.58 10^3/uL (4.4-10.8)
[2024-02-20 09:12] LABS: ESR 6 mm/hr (0-20)
[2024-02-20 09:16] LABS: Bilirubin Negative (Negative); Blood Negative (Negative); Clarity Clear (Clear); Glucose Negative (Negative); Ketones Negative (Negative); Leukocyte Esterase Negative (Negative); Nitrite Negative (Negative); Specific Gravity >= 1.030 (1.005-1.025); Urobilinogen 0.2 mg/dL (Up to 0.2); pH 5.5 (5-8)
[2024-02-20 09:28] LABS: ALT 20 U/L (14-59); AST 13 U/L (15-37); Albumin 3.4 g/dL (3.4-5.0); Alkaline Phosphatase 52 U/L (46-116); Anion Gap 6.9 mmol/L (3-11); BUN 14 mg/dL (7-18); C-Reactive Protein < 0.50 mg/dL (<or=0.5); CO2 30.1 mmol/L (21.0-32.0); CREATININE 0.9 mg/dL (0.55-1.02); Calcium 8.8 mg/dL (8.5-10.1); Chloride 104 mmol/L (98-107); Estimated GFR 93.28 (mL/min/1.73m2); Glucose 94 mg/dL (74-106); Lipase 39 U/L (<78); Magnesium 1.8 mg/dL (1.8-2.4); Potassium 3.9 mmol/L (3.5-5.1); Sodium 141 mmol/L (136-145); Total Protein 7.1 g/dL (6.4-8.2)
[2024-02-20] MEDS: Normal Saline - Diluent 50 ML VIAL IJ (09:29)
[2024-02-20] MEDS: Omnipaque 350 MG/ML 500 ML BTL-Imaging package IJ (09:30)
[2024-02-20] MEDS: Ondansetron O.D.T. 4 MG TABEF, 3 TABS/BTL PO (10:44)
== END 2024-02-20 10:47 | disposition home or self-care (01) ==
PROVIDERS: Emergency Provider Physician Assistant
DX: R10.32 Left lower quadrant pain (principal); R11.2 Nausea with vomiting, unspecified; K59.00 Constipation, unspecified
CPT/HCPCS: 80053; 83690; 85652; 99285; 74177; 81003; 83735; 85025; 86140; 99284